=== PATIENT | male | born 1960 | race Caucasian/White ===

== ENCOUNTER → 2020-10-12 08:59 | Outpatient (REF) | payer MEDICARE, SELFPAY ==
--- NOTE | ~2020-10-12 | CT_ITS ---
EXAMINATION: CT ANGIOGRAM CHEST AND ABDOMEN CLINICAL INFORMATION: Status post aortic dissection repair. COMPARISON: Previous at [facility]. Not available. TECHNIQUE: Following intravenous administration of 85 mL of Omnipaque 350, CT angiogram of the chest aorta was obtained. Subsequently additional 50 mL of Omnipaque 350 was administered and further imaging of abdominal aorta was performed up to pubic symphysis. 3-D reconstructions were performed in AP, oblique and lateral projection. DLP: 1007 mGy-cm. FINDINGS: CHEST: CTA: There is an artificial prosthetic aortic valve. The ascending aorta is of normal caliber. There is a flap visualized from the posterior arch through the descending aorta extending into the abdomen to the level of common iliac bifurcation. There is a 3-vessel branching aortic arch. There is focal dissection extending through the right brachiocephalic artery that terminates at the carotid takeoff. The left common carotid and left subclavian arteries are widely patent. At the level of descending thoracic aorta, the false lumen appears larger and posteriorly. The descending thoracic aorta combined measures 6.6 x 5.5 cm on axial image 235/12. CT NONVASCULAR: The heart size is normal. There are coronary artery and aortic valve calcifications. No pericardial effusion seen. Central trachea and the bronchi are widely patent. No abnormal size mediastinal lymph nodes seen. The thyroid lobes are symmetrical and normal. The lungs are expanded and clear of acute pneumonic process. No pulmonary nodule, mass or consolidation. There is no pleural effusion or thickening. The axilla and the chest wall appear unremarkable. Bone windows reveal mediastinal sutures from previous intervention. ABDOMEN AND PELVIS: CTA: The false lumen is posterior and larger extending inferiorly to the bifurcation. The celiac and superior mesenteric artery branches arise from the true lumen. The left renal artery arises from the true lumen and right renal artery arises from false lumen. Inferiorly the IVAN originates from the smaller true lumen. The true lumen continues into the left common iliac artery and false larger lumen continues into the right common iliac artery. At the level of kidneys, the abdominal aorta measures 3.6 x 3.8 cm on axial image 27/5. The IVC is normal caliber. NONVASCULAR: The liver is homogeneous in density, normal size and shape. No focal lesion or intrahepatic ductal dilatation seen. Visualized spleen, pancreas and bilateral adrenal glands are unremarkable. There is hypodense gallbladder likely from vicarious contrast excretion. A hyperdense sludge is not excluded. Bilateral adrenal glands are unremarkable. Both kidneys are symmetrical, normal size and shape. There is a 4.3 cm partially exophytic cyst lower pole left kidney. There is no hydronephrosis. Partially opacified ureters are normal caliber. The urinary bladder is partially opacified and appears unremarkable. No retroperitoneal lymph nodes or mass seen. The GI tract is unremarkable. There is evidence of previous gastric sleeve surgery. The abdominal wall appears unremarkable. Imaging through the pelvis reveals prostate gland to be unremarkable. No free fluid seen. Small shotty lymph nodes are seen in the inguinal region. Bone windows reveal no lytic or sclerotic process. There is anterior wedging T12 vertebra. CT/CT angio chest IMPRESSION: There is a [place] type B aortic dissection extending beyond the left subclavian artery all the way into the abdominal aorta bifurcation and into the common iliac arteries. There is segmental dissection involving right brachiocephalic artery. At this time, there is no flap seen within the ascending aorta. However, patient did have aortic valve replacement for dissection. If patient did have ascending aortic dissection, it is hard to know. No distinct flap is seen in the ascending aorta. Extending beyond the left subclavian artery, the false lumen is larger through the descending thoracic aorta and abdominal aorta and continuing into the right common iliac artery. Celiac, superior mesenteric and inferior mesenteric artery arises from the smaller true aortic lumen. There is atherosclerotic calcification of smaller false abdominal aortic lumen in the distal abdominal aorta. The lungs are clear. No abnormal mediastinal mass or lymphadenopathy except for coronary artery calcification. Exophytic cyst lower pole left kidney. The kidneys are otherwise unremarkable. Gastric sleeve surgery of the stomach is noted. Rest of the abdomen and pelvis is unremarkable. Images were immediately discussed by phone with Dr. Chang Elder covering for Dr. Blake and was made aware of the aortic dissection at 10:45 AM while patient was on CT table.
--- NOTE | 2020-10-12 09:30 | CA_ITS ---
Transthoracic Echocardiogram Patient (Last, First, Middle): Giovani Diaz, Gender: Male Date of : 1960 Age: 60 Procedure Date: 10/12/2020 Procedure Type: Transthoracic Echocardiogram Location: OP Height: 182.88 cm Weight: 163.3 kg BSA: 2.73 m2 Heart Rate: bpm BP: 152 / 79 mmHg Canvas Cutter Machine: MYNOR Referring MD: Daniel Blake MD Vehicle Insurance Agent: Chang Elder MD Symptoms: Z98.890 S/P AORTIC DISSECTION REPAIR, Z95.2 AV REPLA Study Quality: Fair ECG Rhythm: Sinus Conclusions: - 1. Normal LV systolic function 2. Mildly dilated left atrium 3. Mechanical aortic prosthetic valve with mean gradient of 13 mm of mercury 4. Normal RV systolic pressure 5. No gross pericardial effusion Findings Procedure Information Contrast agent, definity, is being given per protocol without apparent complications. Left Ventricle Normal left ventricular size, thickness, and systolic function. The visually estimated ejection fraction is between 55-60%. There is paradoxical septal motion consistent with post-operative status. Spectral Doppler is indicative of a normal filling pattern. Right Ventricle Normal right ventricular cavity size and systolic function. Atria The left atrium is mildly dilated. There is no evidence of interatrial shunt. The right atrium is normal in size. Aortic Valve A mechanical prosthetic aortic valve is present. The prosthetic aortic valve appears to be functioning normally. The mean gradient is 13 mmHg. There is no aortic valve regurgitation. Mitral Valve Likely normal mitral valve structure and function. There is trace mitral valve regurgitation. There is no mitral valve stenosis. Pulmonic Valve The pulmonic valve was not well visualized. Tricuspid Valve The tricuspid valve was not well visualized. There is trace tricuspid valve regurgitation. The right ventricular systolic pressure is normal. The right ventricular systolic pressure is 25 mmHg. Normal right atrial pressure. There is no evidence of pulmonary hypertension. Great Vessels The pulmonary artery was not well visualized. Visualized portion of ascending aorta appears to be within normal limits Venous The inferior vena cava is normal in size and collapses greater than 50% with inspiration. Pericardium/Pleural There is no evidence of pericardial effusion. Measurements 2D Linear Measurements IVSd: 1.18 0.6-0.9/0.6-1.0 cm LVIDd: 5.33 3.9-5.3/4.2-5.9 cm LVIDd Index: 1.95 2.4-3.2/2.2-3.1 cm/m2 LVIDs: 3.63 2.0-3.6 cm LVPWd: 1.07 0.7-1.1 cm LA Diam: 4.80 2.7-3.8/3.0-4.0 cm LAIDs Index: 1.76 1.5-2.3 cm/m2 LV Mass: 295.46 67-162/88-224 g LV Mass Index: 108.23 43-95/49-115 g/m2 LVOT Diam: 2.40 3.0+(-)1.3 cm 2D Systolic Function EF 4C: 58.40 >55% EF 2C: 58.50 >55% Mitral Valve MV Pk E: 0.99 MV PK A: 0.84 MV Decel Time: 227.00 E/A: 1.20 E'Lateral: 9.68 E'Medial: 7.40 E/E' Med: 13.40 E/E' Lat: 10.20 PHT: 66.00 MVA PHT: 3.33 Decel [place]: 4.37 Aortic Valve AoV Pk Markie: 2.42 AoV Mn Markie: 1.76 AoV VTI: 0.56 AoV Pk Grad: 23.00 Aov Mn Grad: 13.00 BONI Cont.VTI: 1.74 LVOT LVOT Pk Markie: 0.86 LVOT Mn Markie: 0.61 LVOT VTI: 0.22 LVOT Pk Grad: 3.00 LVOT Mn Grad: 2.00 LVOT Diam: 2.40 LVOT Area: 4.52 Diastolic Function MV Pk E: 0.99 MV Pk A: 0.84 E/A: 1.20 E'Medial: 7.40 E/E' Med: 13.40 E' Laterial: 9.68 E/E' Lat: 10.20 Tricuspid Valve TR Pk Markie: 2.32 TR Pk Grad: 22.00 RA Press: 3.00 RVSP: 25.00 Great Vessels Aorta Ao Asc: 3.40 2.1-3.4 cm Updated in Other Vendor System with Status of Final Chang Elder MD electronically signed on 10/12/2020 5:58:22 PM with status of Final
== END ==
LOC: HO.CARD 08:59
PROVIDERS: PCP Internal Medicine; Visit Provider Internal Medicine
DX: Z95.2 Presence of prosthetic heart valve (principal); Z98.890 Other specified postprocedural states
CPT/HCPCS: 71275; 74174; 93306; Q9957; Q9967

== ENCOUNTER → 2020-10-24 08:18 | Outpatient (BNVA) | payer MEDICARE, SELFPAY | PROVIDERS: PCP Internal Medicine; Visit Provider Internal Medicine | DX: I50.32 Chronic diastolic (congestive) heart failure (principal); I48.0 Paroxysmal atrial fibrillation; Z95.1 Presence of aortocoronary bypass graft; Z95.2 Presence of prosthetic heart valve; Z98.890 Other specified postprocedural states | CPT/HCPCS: 99212 ==

== ENCOUNTER → 2020-10-25 13:56 | Outpatient (BNVA) | payer MEDICARE, SELFPAY | PROVIDERS: PCP Internal Medicine; Visit Provider Surgery Vascular Surgery | DX: I71.03 Dissection of thoracoabdominal aorta (principal) | CPT/HCPCS: 99202 ==

== ENCOUNTER → 2020-12-27 08:04 | Outpatient (BNVA) | payer MEDICARE, SELFPAY | PROVIDERS: PCP Internal Medicine; Referring Provider Internal Medicine; Visit Provider Internal Medicine | DX: I50.32 Chronic diastolic (congestive) heart failure (principal); I48.0 Paroxysmal atrial fibrillation; G47.33 Obstructive sleep apnea (adult) (pediatric); Z95.1 Presence of aortocoronary bypass graft; Z95.2 Presence of prosthetic heart valve; Z98.890 Other specified postprocedural states | CPT/HCPCS: 99212 ==

== ENCOUNTER 2021-03-28 13:39 | Outpatient (REF) | payer MEDICARE, SELFPAY ==
[2021-03-28 14:55] LABS: Blood Urea Nitrogen 16 mg/dL (9-16); Estimated Glomerular Filt Rate 52
== END 2021-03-28 13:40 | disposition home or self-care (01) ==
LOC: HO.LAB 13:39
PROVIDERS: PCP Internal Medicine; Visit Provider Surgery Vascular Surgery
DX: I71.03 Dissection of thoracoabdominal aorta (principal)
CPT/HCPCS: 36415; 82565; 84520

== ENCOUNTER 2021-04-11 08:37 | Outpatient (REF) | payer MEDICARE, SELFPAY ==
--- NOTE | ~2021-04-11 | CT_ITS ---
EXAMINATION: CT ANGIOGRAM ABDOMEN AND PELVIS CLINICAL INFORMATION: Dissection of thoracoabdominal aorta. COMPARISON: CT angiogram chest, abdomen, pelvis 10/12/2020. TECHNIQUE: Multiple axial images were obtained through the abdomen and pelvis following the administration of 80 mL of Omnipaque 350 intravenous contrast. Images were not reviewed on a dedicated 3-D workstation. However, images were evaluated on an independent dedicated 3-D workstation and 3-D images were reconstructed with concurrent radiologist supervision and subsequently interpreted. This CT examination was performed using dose optimization techniques as appropriate, variously including the following: *Automated exposure control *Adjustment of mA and/or kV according to patient size (this includes techniques or standardized protocols for targeted exams where dose is matched to indication/reason for exam; i.e. extremities or head) *Use of iterative reconstruction technique DLP: 542 mGy-cm FINDINGS: VASCULAR FINDINGS: The aorta at the thoracoabdominal junction is extremely tortuous. Diameter is largest at the diaphragmatic hiatus where this measures about 5.7, not significantly changed when compared to the prior study. A dissection is seen similar to that noted previously. The false lumen is significantly larger than the true lumen. The celiac gets supply solely from the compressed true lumen. The SMA gets supply from both the true and false lumen and the dissection extends into the SMA for about 3 cm. A single right renal artery arises from the false lumen and a single left renal artery arises from the true lumen. The IVAN arises from the true lumen. The infrarenal abdominal aorta demonstrates calcification around the true lumen. The dissection does not involve the left common iliac artery, but dissection does extend into the right iliac system although not optimally visualized because of contrast timing. I believe the dissection ends before the common femoral artery. Both femoral bifurcations are unremarkable with proximal profunda femoris and superficial femoral arteries. NONVASCULAR FINDINGS: LUNG BASES: The visualized lung bases are unremarkable. LIVER, GALLBLADDER, AND BILIARY TREE: The liver is normal in size, shape, and attenuation. No focal hepatic lesion or biliary ductal dilatation is present. The gallbladder contains layering high-density calculi but is otherwise unremarkable with no evidence of wall thickening, or obvious pericholecystic inflammatory changes. PANCREAS: Unremarkable. SPLEEN: Unremarkable. ADRENAL GLANDS: Unremarkable. KIDNEYS AND URETERS: The kidneys are normal in size, shape, and attenuation. No hydronephrosis, hydroureter, or calculi seen. Again seen is a benign simple 4.4 cm left renal cyst. No solid renal masses are present. No perinephric stranding. BLADDER: Unremarkable. GASTROINTESTINAL TRACT: The small and large bowel are unremarkable. The appendix is unremarkable. ABDOMINAL WALL: No significant hernia is appreciated. LYMPH NODES: Normal. VASCULAR: Unremarkable. PELVIC VISCERA: Unremarkable. OSSEOUS STRUCTURES: Degenerative change is noted in the spine most marked at L4-L5 with grade 1 anterolisthesis. A compression fracture of T12 is again seen and stable. CT/CT angio abdomen pelvis IMPRESSION: The abdominal aortic dissection shows no significant interval change in size and extent. There is a mix of supply to visceral organs with the celiac, left renal artery and IVAN arising from the true lumen and the right renal artery arising from the false lumen with the SMA getting supply from both. Other nonvascular incidental findings as described above.
[2021-04-11] MEDS: iohexoL 350 MG/ML 100 ML INFUS..BTL IV (10:09)
== END 2021-04-11 08:38 | disposition home or self-care (01) ==
LOC: HO.CT 08:37
PROVIDERS: PCP Internal Medicine; Visit Provider Surgery Vascular Surgery
DX: I71.03 Dissection of thoracoabdominal aorta (principal)
CPT/HCPCS: 74174; Q9967

== ENCOUNTER → 2021-04-25 10:31 | Outpatient (BNVA) | payer MEDICARE, SELFPAY | PROVIDERS: PCP Internal Medicine; Visit Provider Surgery Vascular Surgery | DX: I71.03 Dissection of thoracoabdominal aorta (principal) | CPT/HCPCS: 99212 ==

== ENCOUNTER 2021-07-03 07:46 | Outpatient (REF) | payer MEDICARE, SELFPAY ==
[2021-07-03 10:24] LABS: Anion Gap 12 (12-20); Blood Urea Nitrogen 19 mg/dL (9-16); Calcium 9.4 mg/dL (8.4-10.2); Carbon Dioxide 30 mmol/L (22-29); Chloride 105 mmol/L (96-108); Estimated Glomerular Filt Rate 51; Glucose Random 106 mg/dL (60-115); Potassium 4.1 mmol/L (3.3-5.1); Sodium 143 mmol/L (135-145)
== END 2021-07-03 07:47 | disposition home or self-care (01) ==
LOC: HO.LAB 07:46
PROVIDERS: PCP Internal Medicine; Referring Provider Internal Medicine; Visit Provider Internal Medicine
DX: I50.32 Chronic diastolic (congestive) heart failure (principal); I48.0 Paroxysmal atrial fibrillation; G47.33 Obstructive sleep apnea (adult) (pediatric); R06.02 Shortness of breath; I71.00 Dissection of unspecified site of aorta; M79.89 Other specified soft tissue disorders; Z87.891 Personal history of nicotine dependence; Z98.84 Bariatric surgery status; Z95.1 Presence of aortocoronary bypass graft; Z95.5 Presence of coronary angioplasty implant and graft; Z95.2 Presence of prosthetic heart valve; Z79.82 Long term (current) use of aspirin; Z79.01 Long term (current) use of anticoagulants; Z79.891 Long term (current) use of opiate analgesic; Z79.899 Other long term (current) drug therapy
CPT/HCPCS: 36415; 80048; 93005; 99212

== ENCOUNTER 2021-09-26 09:19 | Outpatient (REF) | payer MEDICARE, SELFPAY ==
[2021-09-26 11:13] LABS: Blood Urea Nitrogen 17 mg/dL (9-16); Estimated Glomerular Filt Rate 50
== END 2021-09-26 09:20 | disposition home or self-care (01) ==
LOC: HO.LAB 09:19
PROVIDERS: PCP Internal Medicine; Visit Provider Surgery Vascular Surgery
DX: I71.03 Dissection of thoracoabdominal aorta (principal)
CPT/HCPCS: 36415; 82565; 84520

== ENCOUNTER 2021-10-13 08:33 | Outpatient (REF) | payer MEDICARE, SELFPAY ==
--- NOTE | ~2021-10-13 | CT_ITS ---
EXAMINATION: CT ANGIOGRAM CHEST, ABDOMEN AND PELVIS WITHOUT AND WITH CONTRAST CLINICAL INFORMATION: Thoracoabdominal aortic dissection. COMPARISON: CTA abdomen and pelvis 04/11/2021, CTA chest/abdomen/pelvis 10/12/2020. TECHNIQUE: Multidetector volumetric CT imaging of the chest, abdomen, and pelvis was performed before and after the administration of 100 mL of Omnipaque 350 intravenous contrast without immediate adverse reactions. 3-D POSTPROCESSING: Multiple 3-D angiographic images were processed from the initial data set by the [facility] under concurrent physician supervision. DOSE LOWERING TECHNIQUES: This CT examination was performed using dose optimization techniques as appropriate, variously including the following: - Automated exposure control. - Adjustment of mA and/or kV according to patient size (this includes techniques or standardized protocols for targeted exams where dose is matched to indication/reason for exam; i.e. extremities or head). - Use of iterative reconstruction technique. DLP: 569 mGy-cm FINDINGS: VASCULAR: ASCENDING AORTA: Aortic valve replacement. There appears to have been open repair of the ascending thoracic aorta without evidence of aneurysm, dissection or stenosis. AORTIC ARCH: There may have been an aortic arch repair, however, without noncontrast images it is difficult to assess. Regardless, there is no evidence of aneurysm, dissection or stenosis. Chronic partial dissection flap within the brachiocephalic artery extending into the subclavian artery, unchanged in distribution and appearance. DESCENDING AORTA: Chronic type B dissection with unchanged configuration and distribution between the false and true lumens with a very small true lumen. Without 3-D rendering images, precise measurements of the aneurysmal portion of the descending thoracic aorta is difficult to reproduce, however, when attempts were made to compare it to the axial slice selected on the prior study, the aneurysm currently measures 7.0 x 5.6 cm, previously 6.6 x 5.5 cm. ABDOMINAL AORTA: Extension of the dissection flap continues into the abdomen and into the right common iliac artery. Unchanged configuration and distribution between the false and true lumens. Aneurysmal dilatation of the abdominal aorta is minimal measuring 4.0 x 3.8 cm, unchanged. CELIOMESENTERIC ARTERIES: The celiac artery, superior mesenteric artery and inferior mesenteric artery are patent and arises from the true lumen. RENAL ARTERIES: The right renal artery is patent and arises from the false lumen. The left renal artery is patent and arises from the true lumen. RIGHT ILIOFEMORAL ARTERIES: The dissection flap extends into the right common iliac artery. The internal iliac artery arises from the true lumen. The dissection flap terminates within the external iliac artery. No evidence of flow limitation. LEFT ILIOFEMORAL ARTERIES: The left common iliac artery arises from the true lumen. 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 NONVASCULAR: LUNGS: No pulmonary consolidation. No suspicious pulmonary nodules. Trachea is midline and central airways are patent. MEDIASTINUM: Extensive three-vessel coronary artery calcifications. Heart size is normal. No pericardial effusion. No mediastinal or hilar lymphadenopathy. Esophagus unremarkable. Expected post surgical changes. PLEURA: There is no pleural effusion. No pleural mass or thickening. LIVER, GALLBLADDER, AND BILIARY TREE: The liver is normal in size, shape, and attenuation. No focal hepatic lesion or biliary ductal dilatation is present. The gallbladder contains hyperdense material as seen on other imaging, more likely multiple layering calculi than vicarious excretion of contrast due to the similar appearance over multiple prior studies. No evidence of acute cholecystitis. PANCREAS: Unremarkable. SPLEEN: Unremarkable. ADRENAL GLANDS: Unremarkable. KIDNEYS AND URETERS: The kidneys are normal in size, shape, and attenuation. No hydronephrosis, hydroureter, or calculi seen. No perinephric stranding. Left renal cyst, unchanged and no imaging follow up recommended. BLADDER: Unremarkable. GASTROINTESTINAL TRACT: Status post sleeve gastrectomy. Appendix unremarkable. No evidence of bowel obstruction. ABDOMINAL WALL: No significant hernia is appreciated. LYMPH NODES: No lymphadenopathy within the abdomen or pelvis by CT criteria. PELVIC VISCERA: Unremarkable. OSSEOUS STRUCTURES: Chronic compression fracture T12. Chronic anterolisthesis L4 on L5. No acute or suspicious osseous abnormality. CT/CT angio abdomen pelvis IMPRESSION: 1. Stable appearance of the thoracoabdominal aortic dissection as detailed above. 2. Other non-vascular incidental findings as above.
[2021-10-13] MEDS: iohexoL 350 MG/ML 100 ML INFUS..BTL IV (09:38)
== END 2021-10-13 08:34 | disposition home or self-care (01) ==
LOC: HO.CT 08:33
PROVIDERS: Visit Provider Surgery Vascular Surgery
DX: I71.03 Dissection of thoracoabdominal aorta (principal)
CPT/HCPCS: 71275; 74174; Q9967

== ENCOUNTER → 2021-10-24 09:41 | Outpatient (BNVA) | payer MEDICARE, SELFPAY | PROVIDERS: PCP Internal Medicine; Visit Provider Surgery Vascular Surgery | DX: I71.03 Dissection of thoracoabdominal aorta (principal) | CPT/HCPCS: 99212 ==

== ENCOUNTER → 2021-12-26 08:07 | Outpatient (REF) | payer MEDICARE, SELFPAY ==
--- NOTE | 2021-12-26 08:10 | CA_ITS ---
Transthoracic Echocardiogram Patient (Last, First, Middle): Giovani Diaz, Gender: Male Date of : 1960 Age: 61 Procedure Date: 12/26/2021 Procedure Type: Transthoracic Echocardiogram Location: OP Height: 182.88 cm Weight: 158.76 kg BSA: 2.70 m2 Heart Rate: bpm BP: 135 / 70 mmHg Sales Enablement Lead: VH/TO Referring MD: Daniel Blake MD [employer] Operator: Chang Elder MD Symptoms: Z95.2 - Presence of prosthetic heart valve Study Quality: Technically Difficult ECG Rhythm: Sinus Conclusions: - 1. Normal LV systolic function with pseudonormal filling pattern 2. Mildly dilated left atrium 3. Dilated right ventricle with preserved systolic function 4. Normally function mechanical aortic valve with mean gradient of 13 mmHg 5. Normal RV systolic pressure 6. No pericardial effusion Findings Left Ventricle Normal left ventricular size, thickness, and systolic function. The visually estimated ejection fraction is between 55-60%. Regional wall motion abnormalities can not be excluded due to suboptimal endocardial definition. There is paradoxical septal motion consistent with post-operative status. Spectral Doppler is indicative of a pseudonormal filling pattern. Right Ventricle Moderately increased right ventricular cavity size. There is normal right ventricular systolic function. Atria The left atrium is mildly dilated. There is no evidence of interatrial shunt. The right atrium is likely dilated. Aortic Valve A mechanical prosthetic aortic valve is present. The prosthetic aortic valve appears to be functioning normally. The mean gradient is 13 mmHg. Mitral Valve Likely normal mitral valve structure and function. There is no mitral valve regurgitation. There is no mitral valve stenosis. Pulmonic Valve The pulmonic valve was not well visualized. Tricuspid Valve Likely normal tricuspid valve structure and function. There is trace tricuspid valve regurgitation. The right ventricular systolic pressure is normal. The right ventricular systolic pressure is 26 mmHg. Normal right atrial pressure. There is no evidence of pulmonary hypertension. Great Vessels All visible segments of the aorta are normal in size. The pulmonary artery was not well visualized. Venous The inferior vena cava is normal in size and collapses greater than 50% with inspiration. Pericardium/Pleural There is no evidence of pericardial effusion. Prior Study Comparison No change compared to prior study dated: 10/12/2020. Measurements 2D Linear Measurements IVSd: 1.07 0.6-0.9/0.6-1.0 cm LVIDd: 5.65 3.9-5.3/4.2-5.9 cm LVIDd Index: 2.09 2.4-3.2/2.2-3.1 cm/m2 LVIDs: 3.63 2.0-3.6 cm LVPWd: 1.16 0.7-1.1 cm LA Diam: 4.10 2.7-3.8/3.0-4.0 cm LAIDs Index: 1.52 1.5-2.3 cm/m2 LV Mass: 321.30 67-162/88-224 g LV Mass Index: 119.00 43-95/49-115 g/m2 LVOT Diam: 2.30 3.0+(-)1.3 cm Mitral Valve MV Pk E: 0.99 MV PK A: 0.75 MV Decel Time: 249.00 E/A: 1.30 E'Lateral: 9.57 E'Medial: 5.00 E/E' Med: 19.80 E/E' Lat: 10.30 PHT: 73.00 MVA PHT: 3.01 Decel [place]: 3.98 Aortic Valve AoV Pk Markie: 2.44 AoV Mn Markie: 1.73 AoV VTI: 0.61 AoV Pk Grad: 24.00 Aov Mn Grad: 13.00 BONI Cont.VTI: 1.83 LVOT LVOT Pk Markie: 1.06 LVOT Mn Markie: 0.69 LVOT VTI: 0.27 LVOT Pk Grad: 4.00 LVOT Mn Grad: 3.00 LVOT Diam: 2.30 LVOT Area: 4.15 Diastolic Function MV Pk E: 0.99 MV Pk A: 0.75 E/A: 1.30 E'Medial: 5.00 E/E' Med: 19.80 E' Laterial: 9.57 E/E' Lat: 10.30 Right Ventricle TAPSE (mm): 19.00 TVS' Markie: 10.00 Tricuspid Valve TR Pk Markie: 2.38 TR Pk Grad: 23.00 RA Press: 3.00 RVSP: 26.00 Pulmonary Valve AR Pk Markie: 1.17 Updated in Other Vendor System with Status of Final Chang Elder MD electronically signed on 12/27/2021 12:51:01 PM with status of Final
== END ==
LOC: HO.CARD 08:07
PROVIDERS: PCP Internal Medicine; Visit Provider Internal Medicine
DX: Z95.2 Presence of prosthetic heart valve (principal)
CPT/HCPCS: 93306

== ENCOUNTER → 2022-01-08 07:38 | Outpatient (BNVA) | payer MEDICARE, SELFPAY | PROVIDERS: PCP Internal Medicine; Referring Provider Internal Medicine; Visit Provider Internal Medicine | DX: I50.32 Chronic diastolic (congestive) heart failure (principal); I48.0 Paroxysmal atrial fibrillation; G47.33 Obstructive sleep apnea (adult) (pediatric); Z95.1 Presence of aortocoronary bypass graft; Z98.890 Other specified postprocedural states; Z95.2 Presence of prosthetic heart valve | CPT/HCPCS: 99212 ==

== ENCOUNTER 2022-06-04 13:23 | Outpatient (REF) | payer MEDICARE, SELFPAY ==
[2022-06-04 14:42] LABS: Blood Urea Nitrogen 12 mg/dL (9-16); Estimated Glomerular Filt Rate 54
== END 2022-06-04 13:24 | disposition home or self-care (01) ==
LOC: HO.LAB 13:23
PROVIDERS: PCP Internal Medicine; Visit Provider Surgery Vascular Surgery
DX: I71.40 Abdominal aortic aneurysm, without rupture, unspecified (principal)
CPT/HCPCS: 36415; 82565; 84520

== ENCOUNTER → 2022-07-16 09:47 | Outpatient (BNVA) | payer MEDICARE, SELFPAY | PROVIDERS: PCP Internal Medicine; Referring Provider Internal Medicine; Visit Provider Internal Medicine | DX: I50.32 Chronic diastolic (congestive) heart failure (principal); I48.0 Paroxysmal atrial fibrillation; G47.33 Obstructive sleep apnea (adult) (pediatric); Z95.2 Presence of prosthetic heart valve; Z95.1 Presence of aortocoronary bypass graft; Z98.890 Other specified postprocedural states | CPT/HCPCS: 93005; 99212 ==

== ENCOUNTER 2022-12-21 07:40 | Outpatient (REF) | payer MEDICARE, SELFPAY ==
[2022-12-21 08:30] LABS: Estimated Glomerular Filt Rate 56
== END 2022-12-21 07:41 | disposition home or self-care (01) ==
LOC: HO.LAB 07:40
PROVIDERS: Absent Provider Internal Medicine; PCP Internal Medicine; Visit Provider Nurse Practitioner
DX: I71.03 Dissection of thoracoabdominal aorta (principal)
CPT/HCPCS: 36415; 82565

== ENCOUNTER → 2022-12-31 09:10 | Outpatient (REF) | payer MEDICARE, SELFPAY ==
--- NOTE | 2022-12-31 09:13 | CA_ITS ---
Transthoracic Echocardiogram Patient (Last, First, Middle): Giovani Diaz, Gender: Male Date of : 1960 Age: 62 Procedure Date: 12/31/2022 Procedure Type: Transthoracic Echocardiogram Location: OP Height: 182.88 cm Weight: 142.88 kg BSA: 2.58 m2 Heart Rate: bpm BP: 105 / 65 mmHg Varnish Finisher: ARIA Referring MD: Daniel Blake MD Symptoms: Z95.2 - Presence of prosthetic heart valve Study Quality: Fair with contrast ECG Rhythm: Sinus Conclusions: - The left ventricular systolic function is low normal. The visually estimated ejection fraction is between 50-55%. - Moderately increased right ventricular cavity size. - Moderate biatrial enlargement. - A mechanical prosthetic aortic valve is present. The prosthetic aortic valve appears to be functioning normally. Findings Procedure Information Contrast agent, definity, is being given per protocol without apparent complications. Left Ventricle Normal left ventricular cavity size. There is mildly increased left ventricular wall thickness. The left ventricular systolic function is low normal. The visually estimated ejection fraction is between 50-55%. There is no evidence of regional wall motion abnormalities. Spectral Doppler is indicative of a pseudonormal filling pattern. Right Ventricle Moderately increased right ventricular cavity size. There is mildly decreased right ventricular systolic function. Atria Moderate biatrial enlargement. Aortic Valve A mechanical prosthetic aortic valve is present. The prosthetic aortic valve appears to be functioning normally. The mean gradient is 6 mmHg. There is no aortic valve regurgitation. Mitral Valve The mitral valve appears normal. There is no mitral valve regurgitation. There is no mitral valve stenosis. Pulmonic Valve There is mild pulmonic valve regurgitation. Tricuspid Valve There is mild tricuspid valve regurgitation. There is no evidence of pulmonary hypertension. Great Vessels The asc aorta is normal in size. Venous The inferior vena cava is normal in size and collapses greater than 50% with inspiration. Pericardium/Pleural There is no evidence of pericardial effusion. Prior Study Comparison No significant change compared to prior study dated: 12/26/2021. Measurements 2D Linear Measurements IVSd: 1.14 0.6-0.9/0.6-1.0 cm LVIDd: 5.02 3.9-5.3/4.2-5.9 cm LVIDd Index: 1.95 2.4-3.2/2.2-3.1 cm/m2 LVIDs: 3.93 2.0-3.6 cm LVPWd: 1.12 0.7-1.1 cm LA Diam: 4.30 2.7-3.8/3.0-4.0 cm LAIDs Index: 1.67 1.5-2.3 cm/m2 LV Mass: 269.70 67-162/88-224 g LV Mass Index: 104.53 43-95/49-115 g/m2 LVOT Diam: 2.30 3.0+(-)1.3 cm 2D Systolic Function EF 4C: 51.40 >55% EF 2C: 59.70 >55% EF BiP: 56.50 >55% Mitral Valve MV Pk E: 0.82 MV PK A: 0.75 MV Decel Time: 294.00 E/A: 1.10 E'Lateral: 8.59 E'Medial: 5.77 E/E' Med: 14.30 E/E' Lat: 9.60 PHT: 86.00 MVA PHT: 2.56 Decel [place]: 2.80 Aortic Valve AoV Pk Markie: 1.79 AoV Mn Markie: 1.17 AoV VTI: 0.42 AoV Pk Grad: 13.00 Aov Mn Grad: 6.00 BONI Cont.VTI: 2.12 LVOT LVOT Pk Markie: 0.89 LVOT Mn Markie: 0.61 LVOT VTI: 0.21 LVOT Pk Grad: 3.00 LVOT Mn Grad: 2.00 LVOT Diam: 2.30 LVOT Area: 4.15 Diastolic Function MV Pk E: 0.82 MV Pk A: 0.75 E/A: 1.10 E'Medial: 5.77 E/E' Med: 14.30 E' Laterial: 8.59 E/E' Lat: 9.60 Right Ventricle TAPSE (mm): 17.50 TVS' Markie: 8.92 Tricuspid Valve TR Pk Markie: 2.14 TR Pk Grad: 18.00 RA Press: 3.00 RVSP: 21.00 Great Vessels Aorta Ao Asc: 3.30 2.1-3.4 cm Updated in Other Vendor System with Status of Final Daniel Blake MD electronically signed on 12/31/2022 12:31:35 PM with status of Final
== END ==
LOC: HO.CARD 09:10
PROVIDERS: PCP Internal Medicine; Visit Provider Internal Medicine
DX: Z95.2 Presence of prosthetic heart valve (principal)
CPT/HCPCS: 93306; Q9957

== ENCOUNTER 2023-01-22 09:16 | Outpatient (REF) | payer MEDICARE, SELFPAY ==
[2023-01-22 11:25] LABS: B Type Natriuretic Peptide 189 pg/mL (<100)
[2023-01-22 11:28] LABS: Anion Gap 13 (12-20); Blood Urea Nitrogen 13 mg/dL (9-16); Calcium 9.5 mg/dL (8.4-10.2); Carbon Dioxide 28 mmol/L (22-29); Chloride 105 mmol/L (96-108); Estimated Glomerular Filt Rate > 60; Glucose Random 112 mg/dL (60-115); Potassium 4.9 mmol/L (3.3-5.1); Sodium 141 mmol/L (135-145)
== END 2023-01-22 09:17 | disposition home or self-care (01) ==
LOC: HO.LAB 09:16
PROVIDERS: PCP Internal Medicine; Referring Provider Internal Medicine; Visit Provider Internal Medicine
DX: I48.0 Paroxysmal atrial fibrillation (principal); I50.32 Chronic diastolic (congestive) heart failure; I50.22 Chronic systolic (congestive) heart failure; Z95.1 Presence of aortocoronary bypass graft; Z95.2 Presence of prosthetic heart valve; Z98.890 Other specified postprocedural states; Z79.899 Other long term (current) drug therapy; Z79.01 Long term (current) use of anticoagulants
CPT/HCPCS: 36415; 80048; 83880; 99212

== ENCOUNTER 2023-08-22 08:11 | Outpatient (AMB) | payer MEDICARE, SELFPAY ==
[2023-08-22 09:12] VITALS: BP 120/60; PULSE 59; BMI 38.3
--- NOTE | 2023-08-22 09:12 | MHC.OFFVIS ---
Intake Vital Signs 08/22/23 09:12 Height 6 ft Weight 282 lb 3.067 oz BMI 38.3 BP 120/60 Blood Pressure Location Lt brachial Position Sitting Pulse 59 Intake Visit Reasons: f/up Intake Note: f/up pt its feeling fine. 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 Accompanied by: Self / Same As Patient Allergies No Known Allergies Allergy (Verified 01/22/23 09:56) Medication List - Last Reconciled 08/22/23 by Daniel Blake MD amlodipine 10 mg PO DAILY aspirin (Adult Low Dose Aspirin) 81 mg PO DAILY atorvastatin 40 mg PO DAILY carvedilol 12.5 mg PO BID cholestyramine-aspartame 4 gram (Prevalite) PO DAILY cholestyramine-aspartame 4 gram (Cholestyramine Light) 1 ea PO DAILY furosemide 80 mg PO DAILY losartan 50 mg PO DAILY oxycodone 10 mg PO DAILY PRN potassium chloride ER 10 mEq PO DAILY trazodone 150 - 300 mg PO BEDTIME PRN trazodone 300 mg PO DAILY warfarin 5 mg PO DAILY warfarin mg PO warfarin 2 mg PO DAILY zolpidem 10 mg PO BEDTIME PRN HPI HPI Comments History of Present Illness Details Giovani returns for follow-up regarding aortic valve replacement and aortic dissection. To recall, he used to live in [place] and then relocated to [place] and then moved here for family reasons. While he lived in [place], had acute chest pain in 2015. This led to a diagnosis of aortic dissection. Went to [facility] where he underwent repair of the same. Prior to this, he was morbidly obese and weighed in excess of 450 lb. He had also underwent gastric bypass surgery in 2014 and lost about 150 lb in weight. Extent of coronary disease not clear, but per reports he also underwent saphenous vein graft to RCA. Overall, he is doing okay. No clear-cut cardiac symptoms. Still follows up at [facility] for the thoracic aortic aneurysm. [facility] Medical History Chronic diastolic (congestive) heart failure DOUG (obstructive sleep apnea) PAF (paroxysmal atrial fibrillation) Surgical History Status post coronary artery bypass graft Status post mechanical aortic valve replacement History of gastric bypass (~11/2014) History of hernia repair (~11/2015) Status post aortic dissection repair (~05/2016) Family History Father Cancer Mother No problems noted. Social History Patient Tobacco Use Status: Former Tobacco user Quit Date: 30 years ago Review of Systems Const All systems reviewed & are unremarkable except as noted in HPI and below Reports as per HPI and Reports no additional complaints Eyes Reports as per HPI and Denies no additional complaints ENT Denies no additional complaints and Reports as per HPI Card Reports as per HPI, Reports no additional complaints, Denies acrocyanosis, Denies chest pain, Denies leg edema, Denies lightheadedness, Denies palpitations and Denies dyspnea Resp Reports as per HPI, Denies no additional complaints and Denies dyspnea GI Reports as per HPI and Denies no additional complaints Reports no additional complaints and Reports as per HPI Musc Reports no additional complaints and Reports as per HPI Skin/Breast Reports system reviewed and no additional complaints, except as documented Neuro Reports no additional complaints and Reports as per HPI Psych Reports no additional complaints and Reports as per HPI Endo Reports no additional complaints, Reports as per HPI and Denies palpitations Silvestre/Lymph Reports no additional complaints and Reports as per HPI Aller/Immun Reports no additional complaints and Reports as per HPI Physical Exam Vital Signs: Last Vital Signs Pulse 59 08/22/23 09:12 BP 120/60 08/22/23 09:12 BMI result Body Mass Index 38.3 Const General: cooperative, comfortable and no acute distress Orientation/consciousness: patient oriented x3 HEENT Other: Unremarkable Neck Neck: Yes normal visual inspection Chest Chest palpation & inspection: normal inspection of the chest Resp Auscultation: clear to auscultation bilaterally, no crackles and no wheezes Cardio Jugular venous distension: no JVD Palpation: normal PMI Heart sounds: S1 normal heart sound present, no gallops, Murmur heart sound present (1/6 REGGIE +), no rubs and Other heart sounds present (Normal prosthetic heart sounds.) GI Palpation (GI): Soft to palpation Back/Spine/Pelvis Other: unremarkable Skin General skin exam: no rashes or lesions noted Neuro General: patient oriented x3 Extrem General: Yes pedal edema (1+) Psych Mental Status: mental status grossly normal Office Procedures EKG Details: EKG with sinus bradycardia at 59/Min; [place] prolongation to 252 milliseconds; [place]. [id number], Complete Assessment & Plan Assessment & Plan (1) Chronic diastolic (congestive) heart failure: Code(s): I50.32 - Chronic diastolic (congestive) heart failure Plan: Stable on diuretics. Advised him to send us any new labs. (2) Status post mechanical aortic valve replacement: Code(s): Z95.2 - Presence of prosthetic heart valve Plan: Stable on echocardiogram. Remains on aspirin/Coumadin. Infective endocarditis prophylaxis per protocol. (3) PAF (paroxysmal atrial fibrillation): Code(s): I48.0 - Paroxysmal atrial fibrillation Plan: Per history, cardioversions in the past. No recent issues. (4) Status post coronary artery bypass graft: Code(s): Z95.1 - Presence of aortocoronary bypass graft Plan: History of SVG to RCA. No angina. Seems stable in this regard. Continue statins. Lipids can be followed up through his own PCP. (5) Status post aortic dissection repair: Onset Date: ~05/2016 Code(s): Z98.890 - Other specified postprocedural states Plan: He is now following with vascular surgery at [facility]. (6) DOUG (obstructive sleep apnea): Code(s): G47.33 - Obstructive sleep apnea (adult) (pediatric) Plan: CPAP. Coding Level of Care Code Est Pt Level 4 (31833) Diagnoses Chronic diastolic (congestive) heart failure I50.32 Status post mechanical aortic valve replacement Z95.2 PAF (paroxysmal atrial fibrillation) I48.0 Status post coronary artery bypass graft Z95.1 Status post aortic dissection repair Z98.890 DOUG (obstructive sleep apnea) G47.33 CPT Codes EKG - CPT: 46407-[id number], Complete ([id number])
== END 2023-08-22 09:37 | disposition home or self-care (01) ==
PROVIDERS: PCP Internal Medicine; Visit Provider Internal Medicine
DX: I50.32 Chronic diastolic (congestive) heart failure (principal); Z95.2 Presence of prosthetic heart valve; I48.0 Paroxysmal atrial fibrillation; Z95.1 Presence of aortocoronary bypass graft; Z98.890 Other specified postprocedural states; G47.33 Obstructive sleep apnea (adult) (pediatric)
CPT/HCPCS: 93010; 99214

== ENCOUNTER → 2023-08-22 08:11 | Outpatient (BNVA) | payer MEDICARE, SELFPAY | PROVIDERS: PCP Internal Medicine; Visit Provider Internal Medicine | DX: I50.32 Chronic diastolic (congestive) heart failure (principal); I48.0 Paroxysmal atrial fibrillation; G47.33 Obstructive sleep apnea (adult) (pediatric); Z95.2 Presence of prosthetic heart valve; Z95.1 Presence of aortocoronary bypass graft; Z98.890 Other specified postprocedural states | CPT/HCPCS: 93005; 99212 ==

== ENCOUNTER 2024-02-12 11:39 | Outpatient (AMB) | payer MEDICARE, SELFPAY ==
--- NOTE | 2024-02-12 12:29 | MHC.OFFVIS ---
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 Accompanied by: Self / Same As Patient Allergies No Known Allergies Allergy (Verified 01/22/23 09:56) Medication List - Last Reconciled 02/12/24 by Daniel Blake MD amlodipine 10 mg PO DAILY aspirin (Adult Low Dose Aspirin) 81 mg PO DAILY atorvastatin 40 mg PO DAILY carvedilol 12.5 mg PO BID cholestyramine-aspartame 4 gram (Prevalite) PO DAILY cholestyramine-aspartame 4 gram (Cholestyramine Light) 1 ea PO DAILY furosemide 80 mg PO DAILY losartan 50 mg PO DAILY oxycodone 10 mg PO DAILY PRN potassium chloride ER 10 mEq PO DAILY trazodone 150 - 300 mg PO BEDTIME PRN trazodone 300 mg PO DAILY warfarin 5 mg PO DAILY warfarin mg PO warfarin 2 mg PO DAILY zolpidem 10 mg PO BEDTIME PRN HPI Comments Details: Giovani returns for follow-up regarding aortic valve replacement and aortic dissection. To recall, he used to live in [place] and then relocated to [place] and then moved here for family reasons. While he lived in [place], had acute chest pain in 2015. This led to a diagnosis of aortic dissection. Went to [facility] where he underwent repair of the same. Prior to this, he was morbidly obese and weighed in excess of 450 lb. He had also underwent gastric bypass surgery in 2014 and lost about 150 lb in weight. Extent of coronary disease not clear, but per reports he also underwent saphenous vein graft to RCA. Since last seen, no new specific complaints. He does feel like he is bruising all over his body but otherwise nothing specific from cardiac. He goes to [facility] for thoracic aneurysm and apparently, they are just monitoring him. [facility] Medical History Chronic diastolic (congestive) heart failure DOUG (obstructive sleep apnea) PAF (paroxysmal atrial fibrillation) Surgical History Status post coronary artery bypass graft Status post mechanical aortic valve replacement History of gastric bypass (~11/2014) History of hernia repair (~11/2015) Status post aortic dissection repair (~05/2016) Family History Father Cancer Mother No problems noted. Social History (Updated 02/12/24 @ 12:34 by Dee Dee Vazquez CMA) Alcohol intake: current Comment: social Patient Tobacco Use Status: Former Tobacco user Review of Systems Const Denies chills, Denies fatigue, Denies fever(s), Denies weight gain and Denies weight loss ENT Denies dizziness Card Denies chest pain, Denies leg edema, Denies lightheadedness, Denies palpitations, Reports dyspnea on exertion, Denies orthopnea and Denies other Resp Denies cough and Reports dyspnea on exertion GI Denies hematochezia and Denies change in stool character Musc Denies abnormal gait, Denies muscle weakness, Denies numbness, Denies radiating pain into limb and Denies tingling Neuro Denies abnormal gait, Denies dizziness, Denies numbness and Denies tingling Endo Denies fatigue and Denies palpitations Physical Exam Vital Signs: Last Vital Signs Pulse 62 02/12/24 12:30 BP 108/58 L 02/12/24 12:30 BMI result Body Mass Index 42.8 Const General: cooperative, comfortable and no acute distress Orientation/consciousness: patient oriented x3 HEENT Other: Unremarkable Neck Neck: Yes normal visual inspection Chest Chest palpation & inspection: normal inspection of the chest Resp Auscultation: clear to auscultation bilaterally, no crackles and no wheezes Cardio Jugular venous distension: no JVD Palpation: normal PMI Heart sounds: S1 normal heart sound present, no gallops, Murmur heart sound present (1/6 REGGIE +), no rubs and Other heart sounds present (Normal prosthetic heart sounds.) GI Palpation (GI): Soft to palpation Back/Spine/Pelvis Other: unremarkable Skin General skin exam: no rashes or lesions noted Neuro General: patient oriented x3 Extrem General: Yes pedal edema (1+) Psych Mental Status: mental status grossly normal Assessment & Plan Assessment & Plan (1) Chronic diastolic (congestive) heart failure: Code(s): I50.32 - Chronic diastolic (congestive) heart failure Category: Medical Plan: No recent issues. On diuretics. Will request labs from his PCP. (2) Status post mechanical aortic valve replacement: Code(s): Z95.2 - Presence of prosthetic heart valve Category: Surgical Plan: Stable on echocardiogram. He is on aspirin/Coumadin. As he is complaining of lot of bruising everywhere we can stop the aspirin. With regard to Coumadin, keep the INR around 2.5-3. Need not go above that, to avoid excessive bruising. Infective endocarditis prophylaxis per protocol. We discussed about these changes today. (3) PAF (paroxysmal atrial fibrillation): Code(s): I48.0 - Paroxysmal atrial fibrillation Category: Medical Plan: Per history, cardioversions in the past. He has not had any episodes in recent years. Remains on beta-blockers and already on anticoagulation for the valve. (4) Status post coronary artery bypass graft: Code(s): Z95.1 - Presence of aortocoronary bypass graft Category: Surgical Plan: History of SVG to RCA. No angina. Seems stable in this regard. Remains on statins. Will request labs from PCP. (5) Status post aortic dissection repair: Onset Date: ~05/2016 Code(s): Z98.890 - Other specified postprocedural states Category: Surgical Plan: He is now following with vascular surgery at [facility]. Per patient, he is only being monitored on CTs, but no interventions yet. (6) DOUG (obstructive sleep apnea): Code(s): G47.33 - Obstructive sleep apnea (adult) (pediatric) Category: Medical Plan: CPAP. Coding Level of Care Code Est Pt Level 4 (33481) Diagnoses Chronic diastolic (congestive) heart failure I50.32 Status post mechanical aortic valve replacement Z95.2 PAF (paroxysmal atrial fibrillation) I48.0 Status post coronary artery bypass graft Z95.1 Status post aortic dissection repair Z98.890 DOUG (obstructive sleep apnea) G47.33
[2024-02-12 12:30] VITALS: BP 108/58; PULSE 62; BMI 42.8
== END 2024-02-12 12:58 | disposition home or self-care (01) ==
PROVIDERS: PCP Internal Medicine; Visit Provider Internal Medicine
DX: I50.32 Chronic diastolic (congestive) heart failure (principal); Z95.2 Presence of prosthetic heart valve; I48.0 Paroxysmal atrial fibrillation; Z95.1 Presence of aortocoronary bypass graft; Z98.890 Other specified postprocedural states; G47.33 Obstructive sleep apnea (adult) (pediatric)
CPT/HCPCS: 99214

== ENCOUNTER → 2024-02-12 11:39 | Outpatient (BNVA) | payer MEDICARE, SELFPAY | PROVIDERS: PCP Internal Medicine; Visit Provider Internal Medicine | DX: I50.32 Chronic diastolic (congestive) heart failure (principal); I48.0 Paroxysmal atrial fibrillation; G47.33 Obstructive sleep apnea (adult) (pediatric); Z79.01 Long term (current) use of anticoagulants; Z79.899 Other long term (current) drug therapy; Z95.1 Presence of aortocoronary bypass graft; Z95.2 Presence of prosthetic heart valve | CPT/HCPCS: 99212 ==

== ENCOUNTER 2024-08-12 12:07 | Outpatient (AMB) | payer MEDICARE, SELFPAY ==
[2024-08-12 12:45] VITALS: BP 120/62; PULSE 70; BMI 44.5
--- NOTE | 2024-08-12 12:45 | MHC.OFFVIS ---
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 Accompanied by: Self / Same As Patient Allergies No Known Allergies Allergy (Verified 01/22/23 09:56) Medication List - Last Reconciled 08/12/24 by Daniel Blake MD amlodipine 10 mg PO DAILY atorvastatin 80 mg PO DAILY azithromycin 250 mg PO DAILY carvedilol 12.5 mg PO BID cholestyramine-aspartame 4 gram (Prevalite) PO DAILY cholestyramine-aspartame 4 gram (Cholestyramine Light) 1 ea PO DAILY furosemide 80 mg PO DAILY losartan 50 mg PO DAILY oxycodone 10 mg PO DAILY PRN potassium chloride ER 10 mEq PO DAILY trazodone 150 - 300 mg PO BEDTIME PRN trazodone 300 mg PO DAILY warfarin 5 mg PO DAILY warfarin mg PO warfarin 2 mg PO DAILY zolpidem 10 mg PO BEDTIME PRN HPI Comments Details: Giovani returns for follow-up regarding aortic valve replacement and aortic dissection. To recall, he used to live in [place] and then relocated to [place] and then moved here for family reasons. While he lived in [place], had acute chest pain in 2016. This led to a diagnosis of aortic dissection. Went to [facility] where he underwent repair of the same. Prior to this, he was morbidly obese and weighed in excess of 450 lb. He had also underwent gastric bypass surgery in 2014 and lost about 150 lb in weight. Extent of coronary disease not clear, but per reports he also underwent saphenous vein graft to RCA. Overall, he states he feels good. No cardiac symptoms. Planning to him back to [place] related to this year. He also goes to [facility] for thoracic aneurysm and apparently, they are just monitoring him. [facility] Medical History Chronic diastolic (congestive) heart failure DOUG (obstructive sleep apnea) PAF (paroxysmal atrial fibrillation) Surgical History Status post coronary artery bypass graft Status post mechanical aortic valve replacement History of gastric bypass (~11/2014) History of hernia repair (~11/2015) Status post aortic dissection repair (~05/2016) Family History Father Cancer Mother No problems noted. Social History Alcohol intake: current Comment: social Patient Tobacco Use Status: Former Tobacco user Review of Systems Const Denies chills, Denies fatigue, Denies fever(s), Denies frequent falls, Denies weakness, Denies weight gain and Denies weight loss ENT Denies dizziness Card Denies chest pain, Denies leg edema, Denies lightheadedness, Denies palpitations, Denies dyspnea and Denies dyspnea on exertion Resp Denies cough, Denies dyspnea and Denies dyspnea on exertion GI Denies hematochezia Musc Denies abnormal gait, Denies muscle weakness, Denies numbness, Denies radiating pain into limb and Denies tingling Neuro Denies abnormal gait, Denies dizziness, Denies frequent falls, Denies numbness, Denies tingling and Denies weakness Endo Denies fatigue and Denies palpitations Physical Exam Vital Signs: Last Vital Signs Pulse 70 08/12/24 12:45 BP 120/62 08/12/24 12:45 BMI result Body Mass Index 44.5 Const General: cooperative, comfortable and no acute distress Orientation/consciousness: patient oriented x3 HEENT Other: Unremarkable Neck Neck: Yes normal visual inspection Chest Chest palpation & inspection: normal inspection of the chest Resp Auscultation: clear to auscultation bilaterally, no crackles and no wheezes Cardio Jugular venous distension: no JVD Palpation: normal PMI Heart sounds: S1 normal heart sound present, no gallops, Murmur heart sound present (1/6 REGGIE +), no rubs and Other heart sounds present (Normal prosthetic heart sounds.) GI Palpation (GI): Soft to palpation Back/Spine/Pelvis Other: unremarkable Skin General skin exam: no rashes or lesions noted Neuro General: patient oriented x3 Extrem General: Yes pedal edema (1+) Psych Mental Status: mental status grossly normal Office Procedures EKG Details: EKG with underlying sinus rhythm at 70/Min; nonspecific intraventricular conduction delay; [place] 202 milliseconds; [place]. [id number], Complete Assessment & Plan Assessment & Plan (1) Chronic diastolic (congestive) heart failure: Code(s): I50.32 - Chronic diastolic (congestive) heart failure Category: Medical Plan: No recent issues. On diuretics. We do not have any recent labs. Need to contact PCP. (2) Status post mechanical aortic valve replacement: Code(s): Z95.2 - Presence of prosthetic heart valve Category: Surgical Plan: Stable on echocardiogram. Continue anticoagulation. Off aspirin because of excessive bruising. Infective endocarditis prophylaxis per protocol. (3) PAF (paroxysmal atrial fibrillation): Code(s): I48.0 - Paroxysmal atrial fibrillation Category: Medical Plan: Per history, cardioversions in the past. He has not had any episodes in recent years. Remains on beta-blockers and already on anticoagulation for the valve. (4) Status post coronary artery bypass graft: Code(s): Z95.1 - Presence of aortocoronary bypass graft Category: Surgical Plan: History of SVG to RCA. No angina. Seems stable in this regard. Remains on statins. (5) Status post aortic dissection repair: Onset Date: ~05/2016 Code(s): Z98.890 - Other specified postprocedural states Category: Surgical Plan: Followed up by vascular surgery to [facility]. Per patient, being monitored but no interventions. (6) DOUG (obstructive sleep apnea): Code(s): G47.33 - Obstructive sleep apnea (adult) (pediatric) Category: Medical Plan: CPAP. Orders: Orders CA echo transthoracic complete 4 Months Z95.2 - Presence of prosthetic heart valve Coding Level of Care Code Est Pt Level 4 (86890) Diagnoses Chronic diastolic (congestive) heart failure I50.32 Status post mechanical aortic valve replacement Z95.2 PAF (paroxysmal atrial fibrillation) I48.0 Status post coronary artery bypass graft Z95.1 Status post aortic dissection repair Z98.890 DOUG (obstructive sleep apnea) G47.33 CPT Codes EKG - CPT: 02577-[id number], Complete ([id number])
== END 2024-08-12 13:08 | disposition home or self-care (01) ==
PROVIDERS: PCP Internal Medicine; Visit Provider Internal Medicine
DX: I50.32 Chronic diastolic (congestive) heart failure (principal); Z95.2 Presence of prosthetic heart valve; I48.0 Paroxysmal atrial fibrillation; Z95.1 Presence of aortocoronary bypass graft; Z98.890 Other specified postprocedural states; G47.33 Obstructive sleep apnea (adult) (pediatric)
CPT/HCPCS: 93010; 99214

== ENCOUNTER → 2024-08-12 12:07 | Outpatient (BNVA) | payer MEDICARE, SELFPAY | PROVIDERS: PCP Internal Medicine; Visit Provider Internal Medicine | DX: I50.32 Chronic diastolic (congestive) heart failure (principal); I48.0 Paroxysmal atrial fibrillation; G47.33 Obstructive sleep apnea (adult) (pediatric); Z95.2 Presence of prosthetic heart valve; Z95.1 Presence of aortocoronary bypass graft; Z98.890 Other specified postprocedural states | CPT/HCPCS: 93005; 99212 ==

== ENCOUNTER → 2024-12-02 09:06 | Outpatient (REF) | payer MEDICARE, SELFPAY ==
--- NOTE | 2024-12-02 09:13 | CA_ITS ---
Transthoracic Echocardiogram Patient (Last, First, Middle): Giovani Diaz, Gender: Male Date of : 1960 Age: 64 Procedure Date: 12/02/2024 Procedure Type: Transthoracic Echocardiogram Location: OP Height: 182.88 cm Weight: 149.69 kg BSA: 2.64 m2 Heart Rate: bpm BP: 132 / 80 mmHg Timber Mill Worker: Referring MD: Daniel Blake MD Symptoms: Z95.2 - Presence of prosthetic heart valve Study Quality: Fair ECG Rhythm: Sinus with extra beats Conclusions: - The left ventricular systolic function is low normal. The visually estimated ejection fraction is between 50-55%. - A mechanical prosthetic aortic valve is present. The prosthetic aortic valve appears to be functioning normally. Findings Left Ventricle Normal left ventricular cavity size. There is moderately increased left ventricular wall thickness. The left ventricular systolic function is low normal. The visually estimated ejection fraction is between 50-55%. Diastolic function is normal for age. Right Ventricle Moderately increased right ventricular cavity size. There is low normal right ventricular systolic function. Atria The left atrium is moderately dilated. The right atrium is mildly dilated. Aortic Valve A mechanical prosthetic aortic valve is present. The prosthetic aortic valve appears to be functioning normally. There is no aortic valve regurgitation. Mitral Valve The mitral valve appears normal. There is no mitral valve regurgitation. There is no mitral valve stenosis. Pulmonic Valve There is trace pulmonic valve regurgitation. Tricuspid Valve There is trace tricuspid valve regurgitation. There is no evidence of pulmonary hypertension. Great Vessels The asc aorta is normal in size. Venous The inferior vena cava is normal in size and collapses greater than 50% with inspiration. Pericardium/Pleural There is no evidence of pericardial effusion. Measurements 2D Linear Measurements IVSd: 1.37 0.6-0.9/0.6-1.0 cm LVIDd: 4.63 3.9-5.3/4.2-5.9 cm LVIDd Index: 1.75 2.4-3.2/2.2-3.1 cm/m2 LVIDs: 2.62 2.0-3.6 cm LVPWd: 1.36 0.7-1.1 cm Ao Root: 3.40 2.1-3.5 cm LA Diam: 3.90 2.7-3.8/3.0-4.0 cm LAIDs Index: 1.48 1.5-2.3 cm/m2 LV Mass: 311.41 67-162/88-224 g LV Mass Index: 117.96 43-95/49-115 g/m2 LVOT Diam: 2.00 3.0+(-)1.3 cm 2D Systolic Function EF 4C: 53.30 >55% EF 2C: 70.60 >55% EF BiP: 60.50 >55% Mitral Valve MV Pk E: 0.65 MV PK A: 0.83 MV Decel Time: 264.00 E/A: 0.80 E'Lateral: 9.68 E'Medial: 5.55 E/E' Med: 11.70 E/E' Lat: 6.70 PHT: 77.00 MVA PHT: 2.86 Decel [place]: 2.47 Aortic Valve AoV Pk Markie: 2.13 AoV Mn Markie: 1.35 AoV VTI: 0.46 AoV Pk Grad: 18.00 Aov Mn Grad: 9.00 BONI Cont.VTI: 1.27 LVOT LVOT Pk Markie: 0.76 LVOT Mn Markie: 0.47 LVOT VTI: 0.19 LVOT Pk Grad: 2.00 LVOT Mn Grad: 1.00 LVOT Diam: 2.00 LVOT Area: 3.14 Diastolic Function MV Pk E: 0.65 MV Pk A: 0.83 E/A: 0.80 E'Medial: 5.55 E/E' Med: 11.70 E' Laterial: 9.68 E/E' Lat: 6.70 Right Ventricle TAPSE (mm): 25.00 TVS' Markie: 9.00 Tricuspid Valve TR Pk Markie: 2.01 TR Pk Grad: 16.00 RA Press: 3.00 RVSP: 19.00 Great Vessels Aorta Ao Root-2D: 3.40 2.0-3.7 cm Ao Asc: 3.80 2.1-3.4 cm Pulmonary Valve PV Pk Markie: 0.53 Peak PV Grad: 1.00 Updated in Other Vendor System with Status of Final Daniel Blake MD electronically signed on 12/04/2024 2:48:18 PM with status of Final
--- OUTSIDE RECORDS SUMMARY | 2024-12-02 09:36 | XMS_ITS | Encounter Summary ---
Author Organization [employer] Address [address] [place] [address] Care Team Providers Care Mannequin Sander And Finisher Name Role Phone Unavailable Primary Care Provider Unavailabl e Encounter Details Date Type Department Care Team ([facility] st Contact Info) Description 07/19/2022 Orders Only [facility] [address] [place] [address] Lauro Washington MD [address] [place] [address] Primary insomnia (Primary Dx) Social History Tobacco Use Types Packs/Day Years Used Date Smoking Tobacco: Never Assessed Sex and Gender Information Value Date Recorded Sex Assigned at Male 05/28/2022 10:36 AM EDT Legal Sex Male 10:36 AM EDT Gender Identity Male 05/28/2022 10:36 AM EDT Sexual Orientation Straight 05/28/2022 10 :36 AM EDT documented as of this encounter Plan of Treatment Not on file documented as of this encounter Visit Diagnoses Diagnosis Primary insomnia- Primary Persistent disorder of initiating or maintaining sleep documented in this encounter
--- OUTSIDE RECORDS SUMMARY | 2024-12-02 09:36 | XMS_ITS | Encounter Summary ---
Author Organization [employer] Address [address] [facility] [address]t [place] [address] Care Team Providers Care Money Laundering Investigator Name Role Phone Unavailable Primary Care Provider Unavailabl e Reason for Visit * Reason Onset Date Comments Results 07/16/2023 Encounter Details Date Type Department Care Team ([facility] Contact Info) Description 07/16/2023 Telephone [facility] CHC MED & PEDS [address] [place] [address] Lauro Washington MD [address] [place] [address] Results Social History Tobacco Use Types Packs/Day Years Used Date Smoking Tobacco: Never Assessed Housing Stability Answer Date Recorded What is your housing situation today? Not on adrianne e 07/17/[address] you li ve. Do you have problems with any of the following? None of the above 07/17/2023 Food Insecurity Answer Date Recorded Within the past 12 months, y ou worried that your food would run out before you got money to buy more: Never True 07/17/2023 Within the past 12 months,th e food you bought just didn't last and you didn't have enough money to get more: Often true Transportation Answer Date Recorded In the past 12 months, has l ack of transportation kept you from medical appts, meetings, work or from getting things needed for daily living? No 07/17/2023 Utilities Answer Date Recorded In the past 12 months, has t he electric, gas, oil or water company threatened to shut off services in your home? Yes 07/17/2023 Sex and Gender Information Value Date Recorded Sex Assigned at Male 05/28/2022 10:36 AM EDT Legal Sex Male 10:36 AM EDT Gender Identity Male 05/28/2022 10:36 AM EDT Sexual Orientation Straight 05/28/2022 10 :36 AM EDT documented as of this encounter Miscellaneous Notes * Telephone Encounter - Crys Marquez RN - 07/17/2023 8:46 AM EST Returned call to pt regarding message below. Pt agrees to televisit today with PCP to discuss CT scan results and need for abx and cough med and discuss concerns with INR. * Telephone Encounter - Hawk Gabriel - 07/17/2023 8:12 AM EST Tc from patient calling in regards to message below also wanted to inform PCP that the INR flow is out of range and would like to know what to take to get back in range. * Telephone Encounter - Crys Marquez RN - 07/16/2023 3:23 PM EST Returned call to pt regarding message below. Pt states was called this morning from [facility] regarding his CT angio results. They told pt that it appears pt may have pneumonia on the R lower lobe. Pt is requesting abx if needed and something prescribed for cough. Pt informed message would be sent to PCP for review as results are in pt chart. Pt agrees with plan. * Telephone Encounter - Ollie Cabrera - 07/16/2023 9:11 AM EST Tc from pt giving a call to report some MRI results and INR results as well. Please contact pt @ [phone] documented in this encounter Plan of Treatment Not on file documented as of this encounter Visit Diagnoses Not on filedocumented in this encounter
--- OUTSIDE RECORDS SUMMARY | 2024-12-02 09:36 | XMS_ITS | Referral Summary ---
Author Organization [facility] Address [address] [place] [address] Care Team Providers Care Manager Employee Relations Name Role Phone Lauro Washington Primary Care Provider [phone] Encounters Date Type Department Care Team Description 09/18/2024 Telephone [facility] Vascular Surgery [address] [place] [address] [phone] Leather Fitter: Rolo Moser MD from Last 3 Months Allergies No known active allergies Medications amLODIPine (NORVASC) 10 mg tablet Take 10 mg by mouth once a day. 10/23/2021 Active atorvastatin (LIPITOR) 40 mg tablet TAKE ONE TABLET DAILY 10/09/2021 Active carvediloL (COREG) 12.5 mg tablet Take 12.5 mg by mouth 2 times a day. 10/09/2021 Active furosemide (LASIX) 80 mg tablet Take 80 mg by mouth once a day. 09/25/2021 Active losartan (COZAAR) 50 mg tablet Take 50 mg by mouth once a day. 09/25/2021 Active oxyCODONE (ROXICODONE) 10 mg tablet Take 10 mg by mouth 2 times a day as needed for pain. 11/24/2021 Active potassium chloride ER (KLOR-CON) 10 mEq tablet Take 10 mEq by mouth. Active traZODone (DESYREL) 150 mg tablet Take 300 mg by mouth nightly. 10/23/2021 Active warfarin (COUMADIN) 2 mg tablet Take 2 mg by mouth. 08/15/2021 Active warfarin (COUMADIN) 3 mg tablet Take 3 mg by mouth. 12/12/2021 Active zolpidem (AMBIEN) 10 mg tablet Take 10 mg by mouth nightly as needed. 12/12/2021 Active Active Problems Problem Noted Date Diagnosed Date Dissection of thoracoabdominal aorta 01/13/2024 Assessment & Plan (01/13/2024 12:59 PM EDT): Mr. Diaz is a pleasant 62 y.o. 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 We discussed given his prior surgical history and co-morbidities, his aortic anatomy, repair would be quite complex, requiring at least 3-4 staged surgeries. Following a risk benefit discussion with the patient and his we decided on repeat evaluation in 6 months with CTA CAP for surveillance, if at this point there is interval expansion of his aneurysm we will discuss possible repair options. Abdominal aortic aneurysm (AAA) without rupture 07/08/2023 Social History Tobacco Use Types Packs/Day Years Used Date Smoking Tobacco: Former Cigarettes Q uit: 07/28/1997 Smokeless Tobacco: Never Tobacco Cessation:Counseling Given: Not Answered Sex and Gender Information Value Date Recorded Sex Assigned at Male 01/06/2024 10:08 AM EDT Legal Sex Male 2:36 PM EDT Gender Identity Male 01/06/2024 10:08 AM EDT Sexual Orientation Straight 01/06/2024 10 :08 AM EDT Last Filed Vital Signs Vital Sign Reading Time Taken Comments Blood Pressure 95/56 07/13/2024 9:50 AM EST Pulse 70 07/13/2024 9:50 AM EST Temperature - - Respiratory Rate 18 07/13/2024 9:50 AM EST Oxygen Saturation 94% 07/13/2024 9:50 AM EST Inhaled Oxygen Concentration - - Weight 149.7 kg (330 lb) 07/13/2024 9:50 AM EST Height 182.9 cm (6') 07/13/2024 9:50 AM EST Body Mass Index 44.76 07/13/2024 9:50 AM EST Plan of Treatment Upcoming Encounters Date Type Department Care Team (Late st Contact Info) Description 12/28/2024 9:15 AM EDT Appointment [facility] CT Scan [address] [place] [address] 12/28/2024 10:00 AM EDT Follow-Up [facility] Building Vascular Surgery [address] [place] [address] Leather Fitter: Rolo Moser MD [address] [place] [phone] Procedures * Due to [place] law, this organization might not be sharing negative HIV tests. Procedure Name Priority Date/Time Associated Diagnosis Comments CT ANGIOGRAM ABDOMEN PELVIS W WO CONTRAST Routine 07/13/2024 9:14 AM EST Dissection of thoracoabdominal aorta from Last 3 Months or Most Recently Relevant to Health Maintenance Results * Due to [place] law, this organization might not be sharing negative HIV tests. * CT Angiogram Abdomen Pelvis W WO Contrast (07/13/2024 9:14 AM EST) Anatomical Region Laterality Modality Body Computed Tomogra phy 07/13/2024 9:28 AM EST Impressions 07/13/2024 9:50 AM EST Thoracoabdominal aortic aneurysm and dissection status post repair of type A dissection. ??No significant interval change in the extent of dissection when compared to the prior study of 01/13/2024. Stable extension of the dissection into the origine of right common femoral artery. Stable asymetry of renal opacification on the right due to false lumen origin If this radiology report contains a blank impression section, it is an incomplete radiology report. ??Please contact the interpreting radiologist or applicable radiology division as soon as possible to obtain the completed interpretation. ? Workstation ID: [id number] Narrative 07/13/2024 9:50 AM EST EXAMINATION: CT ANGIOGRAM ABDOMEN PELVIS W WO CONTRAST INDICATION: Thoracoabdominal aortic aneurysm and repair of type A dissection with flap extension into the right innominate artery. TECHNIQUE: Images of the abdomen and pelvis were obtained without intravenous contrast. Subsequently, intravenous contrast was administered and arterial phase images were obtained. Coronal and sagittal reformats were generated. 3D postprocessed reformats were also created. COMPARISON: 01/13/2024. ?? FINDINGS: LOWER THORAX: Please refer to the chest CT. VASCULAR: The dissection extend into the abdominal aorta, without significant change. The proximal abdominal aorta is stable in size. No chnage on the celaic aout of the true lumen. The intimal flat within the SMA is stable. No change in the renal arteries, the left from the true and the right from the false. The IVAN is from the stuart lumen and patent. No change in caliber along the abdominal aorta. The dissection is stable into the origin of the right common femoral artery. HEPATOBILIARY: No focal hepatic lesions. No biliary ductal dilatation. Cholelithiasis into the gallbladder. SPLEEN: No splenomegaly. PANCREAS: No focal masses or ductal dilatation. ADRENAL GLANDS: No adrenal nodules. KIDNEYS/URETERS: No hydronephrosis, calculi, or solid mass lesions. Stable left renal cyst. GI TRACT: No distention or wall thickening. PERITONEUM/RETROPERITONEUM: No ascites or free air. LYMPH NODES: No lymphadenopathy. PELVIC ORGANS/BLADDER: Unremarkable. BONES AND SOFT TISSUES: Unremarkable. Resulting Agency Comment [id number] Procedure Note Jerrell Arriaza MD - 07/13/2024 EXAMINATION: CT ANGIOGRAM ABDOMEN PELVIS W WO CONTRAST INDICATION: Thoracoabdominal aortic aneurysm and repair of type Adissection with flap extension into the right innominate artery. TECHNIQUE: Images of the abdomen and pelvis were obtained withoutintravenous contrast. Subsequently, intravenous contrast was administeredand arterial phase images were obtained. Coronal and sagittal reformatswere generated. 3D postprocessed reformats were also created. COMPARISON: 01/13/2024. FINDINGS: LOWER THORAX: Please refer to the chest CT. VASCULAR: The dissection extend into the abdominal aorta, withoutsignificant change. The proximal abdominal aorta is stable in size. Nochnage on the celaic aout of the true lumen. The intimal flat within theSMA is stable. No change in the renal arteries, the left from the true andthe right from the false. The IVAN is from the stuart lumen and patent. Nochange in caliber along the abdominal aorta. The dissection is stable intothe origin of the right common femoral artery. HEPATOBILIARY: No focal hepatic lesions. No biliary ductal dilatation.Cholelithiasis into the gallbladder. SPLEEN: No splenomegaly. PANCREAS: No focal masses or ductal dilatation. ADRENAL GLANDS: No adrenal nodules. KIDNEYS/URETERS: No hydronephrosis, calculi, or solid mass lesions. Stableleft renal cyst. GI TRACT: No distention or wall thickening. PERITONEUM/RETROPERITONEUM: No ascites or free air. LYMPH NODES: No lymphadenopathy. PELVIC ORGANS/BLADDER: Unremarkable. BONES AND SOFT TISSUES: Unremarkable. IMPRESSION: Thoracoabdominal aortic aneurysm and dissection status post repair of typeA dissection. No significant interval change in the extent of dissectionwhen compared to the prior study of 01/13/2024. Stable extension of thedissection into the origine of right common femoral artery. Stableasymetry of renal opacification on the right due to false lumen origin If this radiology report contains a blank impression section, it is anincomplete radiology report. Please contact the interpreting radiologistor applicable radiology division as soon as possible to obtain thecompleted interpretation. Workstation ID: [id number] Rolo Velez MD IMG CT PROCEDURES Final Resul t from Last 3 Months or Most Recently Relevant to Health Maintenance Insurance MEDICARE Care Teams Manager Employee Relations Relationship Specialty Start Date End Date Lauro Washington [address] [place] [phone] PCP - General Internal Medicine 10/27/21
--- OUTSIDE RECORDS SUMMARY | 2024-12-02 09:37 | XMS_ITS | Encounter Summary ---
Author Organization [employer] Address [address] [facility] 7t [place] [address] Care Team Providers Care Intermediate Project Manager Name Role Phone Unavailable Primary Care Provider Unavailabl e Encounter Details Date Type Department Care Team ([facility] st Contact Info) Description 07/10/2022 Orders Only [facility] [address] [place] [address] Rosi Cruz RN [address] [place] [address] Social History Tobacco Use Types Packs/Day Years [...]
--- OUTSIDE RECORDS SUMMARY | 2024-12-02 09:37 | XMS_ITS | Clinical Summary ---
Author Organization [facility] Address [address] [place] [address] Care Team Providers Care Rate Marker Name Role Phone Lauro Washington Primary Care Provider [phone] Allergies No known active allergies Medications amLODIPine [...] Abdominal aortic aneurysm (AAA) without rupture 07/08/2023 Encounters Date Type Department Care Team Description 09/18/2024 Telephone [facility] Vascular Surgery [address] [place], [place] [phone] Marine Superintendent: Rolo Moser MD from Last 3 Months Family History Medical History Relation Name Comments Cancer Brother Cancer Father Cancer Mother Relation Name Status Comments Brother Father Mother Social History Tobacco Use Types Packs/Day Years [...] Info) Description 12/28/2024 9:15 AM EDT Appointment [facility] CT Scan [address] [place] [address] 12/28/2024 10:00 AM EDT Follow-Up [facility] Building Vascular Surgery [address] [place] [address] Marine Superintendent: Rolo Moser MD [address] [place] [address] Health Maintenance Due Date Last Done Comments Colonoscopy 1961 HIV Screening 1960 Hepatitis C Screening 1961 Sigmoidoscopy 1960 Medicare AWV 1962 RSV Vaccine (60+ years old and patients) (1 - Risk 60-74 years 1-dose series) 2021 FOBT / Fit Test 02/15/2023 02/15/2022 COVID-19 Vaccine ( season) 2024 05/18/2022, 07/10/2021, 10/26/2020, Additional history exists Alcohol/Substance Use Screening 07/29/2024 Depression Screening and Follow-Up 07/29/2024 Social Drivers of Health Annual Screening 07/29/2024 Influenza Vaccine (Season Ended) 2025 05/15/2022, 05/22/2021, 05/14/2019 Cologuard 08/26/2026 08/26/2023, 08/26/2023 Colon Cancer Screening 08/26/2026 DTaP,Tdap,and Td Vaccines (2 - Td or Tdap) 06/02/2029 06/02/2019 Zoster Vaccines Completed 08/18/2019, 07/30, 06/17/2019, Additional history exists Pneumococcal Vaccine: 50+ Years Completed 06/01/2022 Abdominal Aortic Aneurysm (AAA) Screening Completed 07/13/2024, 06/15/2024, 01/13/2024, Additional history exists Hepatitis B Vaccines Aged Out No long er eligible based on patient's age to complete this topic Procedures * Due to [place] state law, this organization might not be sharing negative HIV tests. Procedure Name Priority Date/Time Associated Diagnosis Comments CT ANGIOGRAM ABDOMEN PELVIS W WO CONTRAST Routine 07/13/2024 9:14 AM EST Dissection of thoracoabdominal aorta from Last 3 Months or Most Recently Relevant to Health Maintenance Results * Due to [place] state law, this organization might not be sharing [...] obtain the completed interpretation. ? Workstation ID: [id number] Narrative 07/13/2024 9:50 AM EST EXAMINATION: CT [...] AND SOFT TISSUES: Unremarkable. Resulting Agency Comment [id number] Procedure Note Jerrell Arriaza MD - 07/13/2024 [...] possible to obtain thecompleted interpretation. Workstation ID: [id number] Rolo Velez MD IMG CT PROCEDURES Final Resul t from Last 3 Months or Most Recently Relevant to Health Maintenance Insurance MEDICARE Care Teams Rate Marker Relationship Specialty Start Date End Date Lauro Washington [address] [place] [phone] PCP - General Internal Medicine 10/27/21
--- OUTSIDE RECORDS SUMMARY | 2024-12-02 09:37 | XMS_ITS | Encounter Summary ---
Author Organization [facility] Address [address] [place] [address] Care Team Providers Care Poultry Farmer Name Role Phone Lauro Washington Primary Care Provider [phone] Encounter Details Date Type Department Care Team (Late st Contact Info) Description 01/07/2023 Documentation [facility] Vascular Surgery [address] [place] [phone] Parts Advisor: Nayana Caballero MD [address] [place] [phone] Social History Tobacco Use Types Packs/Day Years Used Date Smoking Tobacco: Former Cigarettes Q uit: 07/28/1997 Smokeless Tobacco: Never Sex and Gender Information Value Date Recorded Sex Assigned at Male 01/06/2024 10:08 AM EDT Legal Sex Male 2:36 PM EDT Gender Identity Male 01/06/2024 10:08 AM EDT Sexual Orientation Straight 01/06/2024 10 :08 AM EDT documented as of this encounter Plan of Treatment Upcoming Encounters Date Type Department Care Team (Late st Contact Info) Description 12/28/2024 9:15 AM EDT Appointment [facility] CT Scan [address] [place] [address] 12/28/2024 10:00 AM EDT Follow-Up [facility] Vascular Surgery [address] [place] [phone] Parts Advisor: Rolo Moser MD [address] [place] [address] [phone] documented as of this encounter Procedures * Due to [place] state law, this organization might not be sharing negative HIV tests. Procedure Name Priority Date/Time Associated Diagnosis Comments ILLUMINATE AORTIC ANEURYSM SCREENING 01/07/2023 2:57 PM EDT documented in this encounter Results * Due to [place] [employer] law, this organization might not be sharing negative HIV tests. * Illuminate Aortic Aneurysm Screening (01/07/2023 2:57 PM EDT) Followed by Internal Vascular,Internal Vascular [facility] Aneurysm Size (cm) 6.0 cm [facility] Leak Status [facility]INA TE [facility] Aneurysm Repair Status [facility] Review Date 02/10/2024 [facility] Aneurysm Location Abdominal [facility] Comments: snooze for 6 mos f/u These results were created by staff from the [facility] program, a division of vascular surgery, based on the review of an existing imaging report. [employer] [facility] Image Date [id number] ILLU MINATE ANALYT[facility] Modality CT [facility] Accession Number [id number] [facility] 01/07/2023 2:57 PM EDT us Aorta Screening Keon [facility] STUDIE S Final Result [employer] documented in this encounter Visit Diagnoses Not on filedocumented in this encounter Care Teams Poultry Farmer Relationship Specialty Start Date End Date Lauro Washington [address] [place] [phone] PCP - General Internal Medicine 10/27/21 documented as of this encounter
--- OUTSIDE RECORDS SUMMARY | 2024-12-02 09:37 | XMS_ITS | Encounter Summary ---
Author Organization [facility] Address [address] [place] [address] Phone Care Team Providers Care Special Education Inclusion Teacher Name Role Phone Lauro Washington MD Primary Care Provider [phone] Encounter Details Date Type Department Care Team (Late st Contact Info) Description 01/24/2022 Documentation Only [facility], [address] [place] [address] Wendy Hurst PA Social History Tobacco Use Types Packs/Day Years Used Date Smoking Tobacco: Never Alcohol Use Standard Drinks/Week Comments Defer 0 (1 standard drink = 0.6 oz pur e alcohol) Sex and Gender Information Value Date Recorded Sex Assigned at Not on file Legal Sex Male 9:35 AM EDT Gender Identity Not on file Sexual Orientation Not on file documented as of this encounter Plan of Treatment Not on file documented as of this encounter Visit Diagnoses Not on filedocumented in this encounter Care Teams Special Education Inclusion Teacher Relationship Specialty Start Date End Date Lauro Washington MD PCP - General Internal Medicine 10/09/19 documented as of this encounter
--- OUTSIDE RECORDS SUMMARY | 2024-12-02 09:37 | XMS_ITS | Encounter Summary ---
Author Organization [employer] Address [address] [facility] 7t [place] [address] Care Team Providers Care Information Delivery Analyst Name Role Phone Unavailable Primary Care Provider Unavailabl e Encounter Details Date Type Department Care Team ([facility] Contact Info) Description 01/28/2024 Orders Only [facility] [address] [place], [place] [phone] ProviderRaz MD Social History Tobacco Use Types Packs/Day Years [...]
--- OUTSIDE RECORDS SUMMARY | 2024-12-02 09:37 | XMS_ITS | Encounter Summary ---
Author Organization [facility] Address [address] [place] [address] Care Team Providers Care Wood Boring Machine Operator Name Role Phone Lauro Washington Primary Care Provider [phone] Encounter Details Date Type Department Care Team (Late st Contact Info) Description 03/29/2022 Orders Only [facility] XRay [address] [place] [address] Jaye Uerna MD [address] [place], [place] [phone] Social History Tobacco Use Types Packs/Day Years [...] Info) Description 12/28/2024 9:15 AM EDT Appointment [facility] CT Scan [address] [place], [place] [phone] 12/28/2024 10:00 AM EDT Follow-Up [facility] Building Vascular Surgery [address] [place], [place] [phone] Spring Repairer Helper Hand: Rolo Moser MD [address] [place] [address] documented as of this encounter Visit Diagnoses Not on filedocumented in this encounter Care Teams Wood Boring Machine Operator Relationship Specialty Start Date End Date Lauro Washignton [address] [place] [address] PCP - General Internal Medicine 10/27/21 documented as of this encounter
--- OUTSIDE RECORDS SUMMARY | 2024-12-02 09:37 | XMS_ITS | Encounter Summary ---
Author Organization [employer] Address [address] [facility] 7t [place] [address] Care Team Providers Care Copyholder Name Role Phone Unavailable Primary Care Provider Unavailabl e Reason for Visit * Reason Comments Med Refill Encounter Details Date Type Department Care Team ([facility] st Contact Info) Description 07/09/2022 Refill [facility] CHC MED & PEDS [address] [place] [address] Lauro Washington MD [address] [place] [address] Essential (primary) hypertension (Primary Dx); Hypokalemia; Other hyperlipidemia Social History Tobacco Use Types Packs/Day Years Used Date Smoking Tobacco: Never Assessed Sex and Gender Information Value Date Recorded Sex Assigned at Male 05/28/2022 10:36 AM EDT Legal Sex Male 10:36 AM EDT Gender Identity Male 05/28/2022 10:36 AM EDT Sexual Orientation Straight 05/28/2022 10 :36 AM EDT documented as of this encounter Miscellaneous Notes * Telephone Encounter - Barb Zepeda LPN - 07/16/2022 9:31 AM EST Pharmacy requesting trazodone 150mg ,epic wont let reorder medication documented in this encounter Plan of Treatment Not on file documented as of this encounter Visit Diagnoses Diagnosis Essential (primary) hypertension- Primary Unspecified essential hypertension Hypokalemia Hypopotassemia Other hyperlipidemia documented in this encounter
--- OUTSIDE RECORDS SUMMARY | 2024-12-02 09:37 | XMS_ITS | Clinical Summary ---
Author Organization [employer] Address [address] [facility] 7t [place] [address] Care Team Providers Care Supervisor Slate Splitting Name Role Phone Unavailable Primary Care Provider Unavailabl e Allergies No known active allergies Medications triamcinolone (Kenalog) 0.1 % cream Apply topically every 12 (twelve) hours. A thin layer to the affected area(s) 02/13/20 22 Active sennosides (Senokot) 8.6 MG tablet Take 1-2 tablets by mouth if needed at bedtime. 02/13/20 22 Active guaiFENesin (Mucinex) 600 MG 12 hr tablet Take 1 tablet by mouth every 12 (twelve) hours if needed. 10/20/19 22 Active cholestyramine light (Prevalite) 4 GM/DOSE powder take 1 packet by oral route once every day dissolved in 2 to 6 ounces of water or noncarbonated beverage before meals 09/15/19 22 Active amoxicillin (Amoxil) 500 MG capsule 2 g 30 to 60 minutes before procedure. 12/23/19 21 Active Lidocaine, Anorectal, 5 % cream to apply to the affected area 2 times a day 08/11/19 21 Active zoster vaccine-recombinant adjuvanted (Shingrix) 50 MCG/0.5ML vaccine Inject 0.5 mL into the shoulder, thigh, or buttocks. 06/17/20 19 Active naloxone (Narcan) 4 mg/0.1 mL nasal spray FOR SUSPECTED OPIOID OVERDOSE. SPRAY 0.1mL IN ONE NOSTRIL. REPEAT IN ALTERNATE NOSTRIL EVERY 2-3 MINUTES IF NEEDED. SEEK MEDICAL ATTENTION IMMEDIATELY EVEN IF PT RESPONDS. 05/29/20 22 Active amLODIPine (Norvasc) 10 MG tabletIndications:E ssential (primary) hypertension Take 1 tablet (10 mg) by mouth in the morning. 90 tablet 3 03/06/20 23 Active atorvastatin (Lipitor) 40 MG tabletIndications:H ypercholesterolemia Take 1 tablet (40 mg) by mouth in the morning. 90 tablet 3 03/06/20 Active carvedilol (Coreg) 12.5 MG tabletIndications:E ssential (primary) hypertension Take 1 tablet (12.5 mg) by mouth 2 times daily. With food 180 tablet 3 03/06/20 Active cholestyramine light (Prevalite) 4 g packet DISSOLVE 1 PACKET IN 2-6 OUNCES OF WATER OR NONCARBONATED BEVERAGE AND DRINK ONCE DAILY BEFORE A MEAL 90 packet 2 03/06/20 Active furosemide (Lasix) 20 MG tablet Take 3 tablets (60 mg) by mouth in the morning. 90 tablet 1 03/06/20 Active losartan (Cozaar) 50 MG tabletIndications:E ssential (primary) hypertension Take 1 tablet (50 mg) by mouth in the morning. 90 tablet 3 03/06/20 23 Active traZODone (Desyrel) 300 MG tabletIndications:P rimary insomnia Take 1 tablet (300 mg) by mouth every 12 (twelve) hours for 360 doses. With food 90 tablet 3 03/06/20 23 Active warfarin (Coumadin) 1 MG tabletIndications:H /O aortic valve replacement,Dissect ion of thoracoabdominal aorta (CMS/HCC) TAKE ONE TABLET BY MOUTH EVERY DAY OR MOST RECENTLY DIRECTED BY COUMADIN CLINIC 90 tablet 03/06/20 23 Active zolpidem (Ambien) 10 MG tabletIndications:P rimary insomnia Take 1 tablet (10 mg) by mouth if needed at bedtime for sleep. 90 tablet 04/23/20 23 Active warfarin (Coumadin) 2 MG tabletIndications:H istory of aortic valve replacement TAKE ONE TABLET BY MOUTH AT BEDTIME 60 tablet 07/01/20 23 Active warfarin (Coumadin) 3 MG tabletIndications:H /O aortic valve replacement TAKE ONE TABLET BY MOUTH EVERY DAY MOST RECENTLY DIRECTED BY COUMDIN CLINIC 90 tablet 07/01/20 23 Active furosemide (Lasix) 80 MG tablet TAKE ONE TABLET BY MOUTH EVERY DAY IN THE MORNING 30 tablet 3 07/09/20 23 Active potassium chloride ER (Micro-K) 10 MEQ ER capsuleIndications: Essential (primary) hypertension TAKE ONE CAPSULE BY MOUTH EVERY DAY WITH FOOD 90 capsule 3 07/17/20 23 Active zolpidem (Ambien) 10 MG tabletIndications:P rimary insomnia TAKE ONE TABLET BY MOUTH EVERY EVENING AT BEDTIME NEEDED FOR SLEEP 90 tablet 07/17/20 23 Active oxyCODONE (Roxicodone) 10 MG immediate release tabletIndications:C hronic pain syndrome Take 2 tablets (20 mg) by mouth if needed in the morning and at bedtime for severe pain. 56 tablet 08/01/19 24 Active Active Problems Problem Noted Date Diagnosed Date Chronic low back pain 07/10/2022 Nontraumatic compression fracture of thoracic ve rtebra 07/10/2022 Chronic kidney disease, stage 2 (mild) 2 Sleep apnea 01/16/2021 Essential (primary) hypertension 11/13/2019 Resolved Problems Problem Noted Date Diagnosed Date Resolved Date History of aortic valve replacement 07/10/2022 08/26/2023 Encounters Date Type Department Care Team Description 10/09/2024 Population Health Risk Score [facility] Department [address] [address] Provider, Population Health Generic from Last 3 Months Immunizations Name Administration Dates Next Due Influenza Injectable Quadriv alant Preservative Free IIV4 MDCK 05/15/2022,05/22/2021 Influenza injectable quadriv alent IIV4 with preservative 05/14/2019 Moderna Covid-19 Vaccine 12+ 07/10/2021,10/27/19 21,09/28/2020 Moderna Covid-19 Vaccine 6+ Bivalent 05/18/2022 Tdap 06/02/2019 Zoster, Recombinant 08/18/2019,06/17/2019 Social History Tobacco Use Types Packs/Day Years [...] Orientation Straight 05/28/2022 10 :36 AM EDT Last Filed Vital Signs Vital Sign Reading Time Taken Comments Blood Pressure 128/64 08/01/2023 1:49 PM EST Pulse 86 08/01/2023 1:49 PM EST Temperature 37.8 ??C (100 ??F) 12/03/2022 10:05 AM ED T Respiratory Rate 16 08/01/2023 1:49 PM EST Oxygen Saturation - - Inhaled Oxygen Concentration - - Weight 143 kg (316 lb) 12/03/2022 10:05 AM EDT Height 177.8 cm (5' 10 ) 12/03/2022 10:05 AM EDT Body Mass Index 45.34 12/03/2022 10:05 AM EDT Plan of Treatment Health Maintenance Due Date Last Done Comments CT Colonography 1961 Colonoscopy 1961 Depression Screening 1961 FIT 1961 FOBT 1961 HIV Screening 1961 Sigmoidoscopy 1961 Alcohol/Substance Use Screening 1973 Tobacco Screening 1973 Hepatitis C Screening 1979 RSV Patients and Patients Aged 60 years or older (1 - Risk 60-74 years 1-dose series) 2021 COVID-19 Vaccine ( season) 2024 06/17/2023, 05/18/2022, 07/10/2021, Additional history exists Influenza Vaccine (#1) 2024 3, 05/15/2022, 05/22/2021, Additional history exists SDOH Screening 07/17/2024 07/17/2023 Colorectal Cancer Screening 08/26/2026 FIT DNA/Cologuard 08/26/2026 08/26/2023 Lipid Panel 02/15/2027 02/15/2022 DTaP/Tdap/Td Vaccines (2 - Td or Tdap) 06/02/2029 06/02/2019 Zoster Vaccines Completed 08/18/2019, 06/17/2019 Pneumococcal Vaccine: 50+ Years Completed 06/01/2022 HIB Vaccines Aged Out No longer eligi ble based on patient's age to complete this topic HPV Vaccines Aged Out No longer eligi ble based on patient's age to complete this topic Hepatitis A Vaccines Aged Out No long er eligible based on patient's age to complete this topic Hepatitis B Vaccines Aged Out No long er eligible based on patient's age to complete this topic IPV Vaccines Aged Out No longer eligi ble based on patient's age to complete this topic Meningococcal Vaccine Aged Out No sukumar awa eligible based on patient's age to complete this topic RSV under 20 months Aged Out No longe r eligible based on patient's age to complete this topic Rotavirus Vaccines Aged Out No longer eligible based on patient's age to complete this topic Procedures Procedure Name Priority Date/Time Associated Diagnosis Comments LIPID PANEL, STANDARD Routine 02/15/2022 8:33 AM EDT from Last 3 Months or Most Recently Relevant to Health Maintenance Results * LIPID PANEL, STANDARD (02/15/2022 8:33 AM EDT) Chol/HDLC Ratio 2.5 <5.0 (calc) [facility] Cholesterol, Total 128 <200 mg/dL [facility] HDL Cholesterol 52 > OR = 40 mg/dL [facility] LDL Cholesterol 63 mg/dL (calc) [facility] Comment: Reference range: <100 ?? Desirable range <100 mg/dL for primary prevention; ?? <70 mg/dL for patients with CHD or diabetic patients ?? with > or = 2 CHD risk factors. ?? LDL-C is now calculated using the Skyler-Ann ?? calculation, which is a validated novel method providing ?? better accuracy than the Friedewald equation in the ?? estimation of LDL-C. ?? Skyler SS et al. CLAUDIA. 2013;310(19): 2104-3912 ?? (http://education.[employer]/faq/BXD203) Non-HDL Cholesterol 76 <130 mg/dL (calc) [facility] Comment: For patients with diabetes plus 1 major ASCVD risk ?? factor, treating to a non-HDL-C goal of <100 mg/dL ?? (LDL-C of <70 mg/dL) is considered a therapeutic ?? option. Triglycerides 58 <150 mg/dL [facility] 02/15/2022 8:33 AM EDT us Lauro Washington MD LAB BLOOD ORDERABLES Final Result [facility] [address] from Last 3 Months or Most Recently Relevant to Health Maintenance [place] [id number]
--- OUTSIDE RECORDS SUMMARY | 2024-12-02 09:37 | XMS_ITS | Encounter Summary ---
Author Organization [employer] Address [address] [facility] 7t [place] [address] Care Team Providers Care Automatic Oven Operator Name Role Phone Unavailable Primary Care Provider Unavailabl e Reason for Visit * Reason Comments Med Refill Encounter Details Date Type Department Care Team (Late st Contact Info) Description 12/04/2022 Refill [facility] MEDICINE [address] [place] [address] Lauro Washington MD [address] [place] [address] Primary insomnia Social History Tobacco Use Types Packs/Day Years Used Date Smoking Tobacco: Never Assessed Sex and Gender Information Value Date Recorded Sex Assigned at Male 05/28/2022 10:36 AM EDT Legal Sex Male 10:36 AM EDT Gender Identity Male 05/28/2022 10:36 AM EDT Sexual Orientation Straight 05/28/2022 10 :36 AM EDT COVID-19 Exposure Response Date Recorded In the last 10 days, have yo u been in contact with someone who was confirmed or suspected to have Coronavirus/COVID-19? No / Unsure 12/03/2022 9:30 AM EDT documented as of this encounter Plan of Treatment Not on file documented as of this encounter Visit Diagnoses Diagnosis Primary insomnia Persistent disorder of initiating or maintaining sleep documented in this encounter
--- OUTSIDE RECORDS SUMMARY | 2024-12-02 09:37 | XMS_ITS | Encounter Summary ---
Author Organization [facility] Address [address] [place] [address] Care Team Providers Care Manager Supply Chain Planning Name Role Phone Lauro Washington Primary Care Provider [phone] [phone] Encounter Details Date Type Department Care Team (Late st Contact Info) Description 01/07/2023 Documentation [facility] Vascular Surgery [address] [place] [phone] Loan Operations Manager: Nayana Caballero MD [address] [place] [phone] Social History Tobacco Use Types Packs/Day Years [...] Info) Description 12/28/2024 9:15 AM EDT Appointment [facility] CT Scan [address] [place] [address] 12/28/2024 10:00 AM EDT Follow-Up [facility] Vascular Surgery [address] [place] [phone] Loan Operations Manager: Rolo Moser MD [address] [place] [address] [phone] documented as of this encounter Procedures * Due to [place] state law, this organization might not be sharing negative HIV tests. Procedure Name Priority Date/Time Associated Diagnosis Comments ILLUMINATE AORTIC ANEURYSM SCREENING 01/07/2023 2:57 PM EDT documented in this encounter Results * Due to [place] Curb Call law, this organization might not be sharing negative HIV tests. * Illuminate Aortic Aneurysm Screening (01/07/2023 2:57 PM EDT) Followed by Internal Vascular,Internal Vascular [facility] Aneurysm Size (cm) 6.0 cm [facility] Leak Status ILLUMINA TE ANALYT[facility] Aneurysm Repair Status [facility] Review Date 09/17/2023 [facility] Aneurysm Location Abdominal [facility] Comments: snooze for 6 mos f/u w/ CTA These results were created by staff from the [facility] program, a division of vascular surgery, based on the review of an existing imaging report. [facility] Image Date [id number] ILLU MINATE ANALYTICS Modality CT ILLUMINATE [facility]ICOS Accession Number [id number] [facility]LLUMINAHotelic[facility] 01/07/2023 2:57 PM EDT us Aorta Screening Keon [facility] OUTSIDE STUDIE S Final Result [facility] documented in this encounter Visit Diagnoses Not on filedocumented in this encounter Care Teams Manager Supply Chain Planning Relationship Specialty Start Date End Date Lauro Washington [address] [place] [address] PCP - General Internal Medicine 10/27/21 documented as of this encounter
--- OUTSIDE RECORDS SUMMARY | 2024-12-02 09:37 | XMS_ITS | Clinical Summary ---
Author Organization [facility], Address [address] [place] [address] [place] [address] Phone Care Team Providers Care Structural Engineer Name Role Phone Lauro Washington MD Primary Care Provider [phone] Allergies No known active allergies Medications bumetanide (BUMEX) 2 MG tablet Take 2 mg by mouth 2 (two) times a day 09/21/2019 Active traZODone (DESYREL) 150 MG tablet Take 150 mg by mouth every night 09/21/2019 Active warfarin (COUMADIN) 3 MG tablet Take 1 tablet by oral route once daily OR as most recently directed by Coumadin Clinic. 09/15/2019 Active zolpidem (AMBIEN) 10 MG tablet Take 10 mg by mouth at night if needed 09/15/2019 Active losartan (COZAAR) 50 MG tablet Take 50 mg by mouth 1 (one) time each day Active carvedilol (COREG) 12.5 MG tablet Take 12.5 mg by mouth 2 (two) times a day with meals Active atorvastatin (LIPITOR) 40 MG tablet Take 40 mg by mouth 1 (one) time each day Active amLODIPine (NORVASC) 10 MG tablet Take 10 mg by mouth 1 (one) time each day Active oxyCODONE (ROXICODONE) 10 MG immediate release tablet TAKE TWO TABLETS BY MOUTH TWICE DAILY NEEDED. 10/05/2020 Active cholestyramine light 4 g packet Take 1 packet by mouth Active potassium chloride (KLOR-CON M10) 10 MEQ CR tablet Take 10 mEq by mouth 1 (one) time each day Do not crush or chew. Active furosemide (LASIX) 80 MG tablet Take 80 mg by mouth 1 (one) time each day 12/26/2021 Active Active Problems Problem Noted Date Diagnosed Date Hypervolemia 11/05/2022 Body mass index 40+ - severely obese 11/05/2022 Chronic kidney disease, stage 2 (mild) 2 Coronary arteriosclerosis 01/31/2022 Stage 3a chronic kidney disease 11/17/2019 Essential (primary) hypertension 11/13/2019 Type 2 diabetes mellitus without complication Resolved Problems Problem Noted Date Diagnosed Date Resolved Date Renal disorder due to type 2 diabetes mellitus 04/11/2020 04/24/2021 Diastolic dysfunction 04/11/20202020 Hypertensive heart and chron ic kidney disease with heart failure and stage 1 through stage 4 chronic kidney disease, or unspecified chronic kidney disease 12/03/2019 04/24/2021 Hypertensive heart and chron ic kidney disease without heart failure, with stage 1 through stage 4 chronic kidney disease, or unspecified chronic kidney disease 11/17/201912/01 Swelling 11/17/2019 12/02/2019 History of mechanical aortic valve replacement 11/17/2019 11/17/2019 Thoracic aortic aneurysm without rupture 11/17/2019 04/24/2021 Immunizations Immunization Administration Dates Next Due Zoster 08/18/2019,06/17/2019 Social History Tobacco Use Types Packs/Day Years Used Date Smoking Tobacco: Never Tobacco Cessation:Counseling Given: Not Answered Alcohol Use Standard Drinks/Week Comments Defer 0 (1 standard drink = 0.6 oz pur e alcohol) Sex and Gender Information Value Date Recorded Sex Assigned at Not on file Legal Sex Male 9:35 AM EDT Gender Identity Not on file Sexual Orientation Not on file Last Filed Vital Signs Vital Sign Reading Time Taken Comments Blood Pressure 124/72 11/05/2022 5:01 PM EDT Pulse - - Temperature - - Respiratory Rate - - Oxygen Saturation - - Inhaled Oxygen Concentration - - Weight 151 kg (332 lb) 11/05/2022 5:01 PM EDT Height - - Body Mass Index - - Plan of Treatment Health Maintenance Due Date Last Done Comments Pneumococcal Vaccine: 50+ Years (1 of 2 - PCV) 1980 Colorectal Cancer Screening: Annual FOBT 2010 Colorectal Cancer Screening: Colonoscopy 2010 Colorectal Cancer Screening: Sigmoidoscopy 2010 Diabetes: Ophthalmology Exam 11/13/2019 Diabetes: Pedal Pulse Checked 11/13/2019 Diabetes: Sensory Foot Exam 11/13/2019 Diabetes: Visual Foot Exam 11/13/2019 Diabetes: Hemoglobin A1C 05/02/2022 022, 04/24/2021 Influenza Vaccine (Season Ended) 2025 05/15/2022, 05/22/2021, 05/14/2019 Hepatitis B Vaccine Aged Out No longe r eligible based on patient's age to complete this topic Procedures Procedure Name Priority Date/Time Associated Diagnosis Comments HEMOGLOBIN A1C Routine 01/30/2022 5:47 PM EDT from Last 3 Months or Most Recently Relevant to Health Maintenance Results * Hemoglobin A1c (01/30/2022 5:47 PM EDT) Hemoglobin A1C 5.2 (4.0-5.6) % [facility] Comment: MONITORING: In known diabetic patients, hemoglobin A1c targets should be discussed with health care provider. DIAGNOSTIC USE: ??The [place] Diabetes Association (ADA) and the World Health Organization (WHO) recommend the use of HbA1c to diagnose diabetes using a threshold of 6.5%. Patients who have an HbA1c between 5.7% and 6.4% are considered at increased risk for developing diabetes in the future. CAUTION: Falsely low HbA1c results may be observed in patients with hemolytic anemia, homozygous forms of abnormal hemoglobin (e.g. SS, CC, SC), , recent blood loss or hemoglobin F greater than 7%. Fructosamine may be used as an alternate test in these cases. REFERENCE: ADA: Standards of Medical Care in Diabetes 2020, The Journal of Clinical and Applied Research and Education Volume 43, Supplement 1 Testing performed or reported by [facility], a Service of [facility], [address] [place] [address] Trinidad Chowdhury MD, Oil Furnace Installer [facility]# [id number] 01/30/2022 5:47 PM EDT 01/30/2022 5:51 PM EDT us Chente Clements MD LAB BLOOD ORDERABLES Final Resul t [facility] from Last 3 Months or Most Recently Relevant to Health Maintenance Insurance [facility] Medicare Care Teams Structural Engineer Relationship Specialty Start Date End Date Lauro Washington MD PCP - General Internal Medicine 10/09/19
--- OUTSIDE RECORDS SUMMARY | 2024-12-02 09:37 | XMS_ITS | Encounter Summary ---
Author Organization [facility] Address [address] [place] [address] Care Team Providers Care Processing Archivist Name Role Phone Lauro Washington Primary Care Provider [phone] Encounter Details Date Type Department Care Team (Late st Contact Info) Description 12/20/2021 Orders Only [facility] Interventional Radiology [address] [place] [phone] Carmen Manrique MD [address] [place] [address] Social History Tobacco Use Types Packs/Day Years [...] Info) Description 12/28/2024 9:15 AM EDT Appointment [facility] CT Scan [address] [place] [address] [phone] 12/28/2024 10:00 AM EDT Follow-Up [facility] Building Vascular Surgery [address] [place] [phone] Stitcher Feeder: Rolo Moser MD [address] [place] [phone] documented as of this encounter Visit Diagnoses Not on filedocumented in this encounter Care Teams Processing Archivist Relationship Specialty Start Date End Date Lauro Washington [address] [place] [address] PCP - General Internal Medicine 10/27/21 documented as of this encounter
--- OUTSIDE RECORDS SUMMARY | 2024-12-02 09:37 | XMS_ITS | Encounter Summary ---
Author Organization [employer] Address [address] [facility] [address] 7t [place] [address] Care Team Providers Care Blowing Engineer Name Role Phone Unavailable Primary Care Provider Unavailabl e Reason for Visit * Reason Comments Med Refill Encounter Details Date Type Department Care Team ([facility] st Contact Info) Description 04/01/2024 Refill [facility] MED & PEDS [address] [place] [address] Lauro Washington MD [address] [place] [address] Essential (primary) hypertension Social History Tobacco Use Types Packs/Day Years [...] this encounter Visit Diagnoses Diagnosis Essential (primary) hypertension Unspecified essential hypertension documented in this encounter
== END ==
LOC: HO.CARD 09:06
PROVIDERS: PCP Internal Medicine; Visit Provider Internal Medicine
DX: Z95.2 Presence of prosthetic heart valve (principal)
CPT/HCPCS: 93306

== ENCOUNTER → 2024-12-02 09:13 | Outpatient (BNV) | payer MEDICARE, SELFPAY | PROVIDERS: PCP Internal Medicine; Visit Provider Internal Medicine | DX: I51.7 Cardiomegaly (principal); Z95.2 Presence of prosthetic heart valve | CPT/HCPCS: 93306 ==

== ENCOUNTER 2024-12-08 08:12 | Outpatient (AMB) | payer MEDICARE, SELFPAY ==
--- OUTSIDE RECORDS SUMMARY | 2024-12-08 08:17 | XMS_ITS | Clinical Summary ---
Author Organization [facility] Address [address] [place] [address] Care Team Providers Care Hematology Nurse Name Role Phone Lauro Washington Primary Care Provider [phone] Allergies No known active allergies Medications amLODIPine [...] Type Department Care Team Description 09/18/2024 Telephone [facility] Vascular Surgery [address] [place], [place] [phone] Pet Care Attendant: Rolo Moser MD from Last 3 Months [...] Info) Description 12/28/2024 9:15 AM EDT Appointment [facility] CT Scan [address] [place] [address] 12/28/2024 10:00 AM EDT Follow-Up [facility] Building Vascular Surgery [address] [place] [address] Pet Care Attendant: Rolo Moser MD [address] [place] [address] Health Maintenance Due Date Last Done Comments [...] complete this topic Procedures * Due to [place] state law, this organization might not be sharing negative HIV tests. Procedure Name Priority Date/Time Associated Diagnosis Comments CT ANGIOGRAM ABDOMEN PELVIS W WO CONTRAST Routine 07/13/2024 9:14 AM EST Dissection of thoracoabdominal aorta from Last 3 Months or Most Recently Relevant to Health Maintenance Results * Due to [place] state law, this organization might not be [...] obtain the completed interpretation. ? Workstation ID: [id number] Narrative 07/13/2024 9:50 AM EST EXAMINATION: CT [...] AND SOFT TISSUES: Unremarkable. Resulting Agency Comment [id number] Procedure Note Jerrell Arriaza MD - 07/13/2024 [...] possible to obtain thecompleted interpretation. Workstation ID: [id number] us Rolo Velez MD IMG CT PROCEDURES Final Resul t from Last 3 Months or Most Recently Relevant to Health Maintenance Insurance MEDICARE Care Teams Hematology Nurse Relationship Specialty Start Date End Date Lauro Washington [address] [place] [phone] PCP - General Internal Medicine 10/27/21
--- OUTSIDE RECORDS SUMMARY | 2024-12-08 08:17 | XMS_ITS | Encounter Summary ---
Author Organization [employer] Address [address] [facility] 7t [place] [address] Care Team Providers Care Dean Of Men Name Role Phone Unavailable Primary Care Provider Unavailabl e Encounter Details Date Type Department Care Team ([facility] st Contact Info) Description 07/19/[address] [facility] MEDICINE [address] [place] [address] Lauro Washington MD [address] [place] [address] Primary insomnia (Primary Dx) Social History Tobacco [...]
--- OUTSIDE RECORDS SUMMARY | 2024-12-08 08:17 | XMS_ITS | Encounter Summary ---
Author Organization [facility] Address [address] [place] [phone] Care Team Providers Care Photography Editor Name Role Phone Lauro Washington Primary Care Provider [phone] Encounter Details Date Type Department Care Team (Late st Contact Info) Description 12/20/2021 Orders Only [facility] Interventional Radiology [address] [place] [address] Carmen Manrique MD [address] [place] [phone] Social History Tobacco Use Types Packs/Day Years [...] Info) Description 12/28/2024 9:15 AM EDT Appointment [facility] CT Scan [address] [place] [address] [phone] 12/28/2024 10:00 AM EDT Follow-Up [facility] Building Vascular Surgery [address] [place] [phone] Prior Authorization Technician: Rolo Moser MD [address] [place] [phone] documented as of this encounter Visit Diagnoses Not on filedocumented in this encounter Care Teams Photography Editor Relationship Specialty Start Date End Date Lauro Washington [address] [place] [address] PCP - General Internal Medicine 10/27/21 documented as of this encounter
--- OUTSIDE RECORDS SUMMARY | 2024-12-08 08:17 | XMS_ITS | Referral Summary ---
Author Organization [facility] Address [address] [place] [address] Care Team Providers Care Learning Disabilities Teacher Name Role Phone Lauro Washington Primary Care Provider [phone] Encounters Date Type Department Care Team Description 09/18/2024 Telephone [facility] Vascular Surgery [address] [place] [address] [phone] Real Estate Legal Assistant: Rolo Moser MD from Last 3 Months [...] Info) Description 12/28/2024 9:15 AM EDT Appointment [facility] CT Scan [address] [place] [address] 12/28/2024 10:00 AM EDT Follow-Up [facility] Building Vascular Surgery [address] [place] [address] Real Estate Legal Assistant: Rolo Moser MD [address] [place] [phone] Procedures * Due to [employer] law, this organization might not be sharing negative HIV tests. Procedure Name Priority Date/Time Associated Diagnosis Comments CT ANGIOGRAM ABDOMEN PELVIS W WO CONTRAST Routine 07/13/2024 9:14 AM EST Dissection of thoracoabdominal aorta from Last 3 Months or Most Recently Relevant to Health Maintenance Results * Due to [employer] law, this organization might not be sharing [...] obtain the completed interpretation. ? Workstation ID: [id number] Narrative 07/13/2024 9:50 AM EST EXAMINATION: CT [...] AND SOFT TISSUES: Unremarkable. Resulting Agency Comment [id number] Procedure Note Jerrell Arriaza MD - 07/13/2024 [...] possible to obtain thecompleted interpretation. Workstation ID: [id number] Rolo Velez MD IMG CT PROCEDURES Final Resul t from Last 3 Months or Most Recently Relevant to Health Maintenance Insurance MEDICARE Care Teams Learning Disabilities Teacher Relationship Specialty Start Date End Date Lauro Washington [address] [place] [address] PCP - General Internal Medicine 10/27/21
--- OUTSIDE RECORDS SUMMARY | 2024-12-08 08:17 | XMS_ITS | Encounter Summary ---
Author Organization [facility] Address [address] [place] [address] Care Team Providers Care Remote Operations Producer Name Role Phone Lauro Washington Primary Care Provider [phone] Encounter Details Date Type Department Care Team (Late st Contact Info) Description 03/29/2022 Orders Only [facility] XRay [address] [place] [address] Jaye Urena MD [address] [place], [place] [phone] Social History Tobacco Use Types Packs/Day Years [...] Info) Description 12/28/2024 9:15 AM EDT Appointment [facility] CT Scan [address] [place], [place] [id number] 12/28/2024 10:00 AM EDT Follow-Up [facility] Building Vascular Surgery [address] [place], [place] [phone] Balance Wheel Motion Inspector: Rolo Moser MD [address] [place] [address] documented as of this encounter Visit Diagnoses Not on filedocumented in this encounter Care Teams Remote Operations Producer Relationship Specialty Start Date End Date Lauro Washington [address] [place] [address] PCP - General Internal Medicine 10/27/21 documented as of this encounter
--- OUTSIDE RECORDS SUMMARY | 2024-12-08 08:17 | XMS_ITS | Encounter Summary ---
Author Organization [employer] Address [address] [facility] 7t [place] [address] Care Team Providers Care Toxicology Supervisor Name Role Phone Unavailable Primary Care Provider Unavailabl e Reason for Visit * Reason Onset Date Comments Results 07/16/2023 Encounter Details Date Type Department Care Team ([facility] Contact Info) Description 07/16/2023 Telephone [facility] CH[facility] MED & PEDS [address] [place] [address] Lauro Washington MD [address] [place] [address] Results Social History Tobacco Use Types Packs/Day [...] Miscellaneous Notes * Telephone Encounter - Crys Maruqez RN - 07/17/2023 8:46 AM EST Returned [...] Pt states was called this morning from [facility] regarding his CT angio results. They told [...] results as well. Please contact pt @ [phone] documented in this encounter Plan of Treatment Not on file documented as of this encounter Visit Diagnoses Not on filedocumented in this encounter
--- OUTSIDE RECORDS SUMMARY | 2024-12-08 08:17 | XMS_ITS | Encounter Summary ---
Author Organization [employer] Address 75 [facility] 7t [place] [address] Care Team Providers Care Buckler And Lacer Name Role Phone Unavailable Primary Care Provider Unavailabl e Reason for Visit * Reason Comments Med Refill Encounter Details Date Type Department Care Team (Late st Contact Info) Description 12/04/2022 Refill [facility] MEDICINE [address] [place] [address] Lauro Washington MD [address] [place] [address] Primary insomnia Social History Tobacco Use Types [...]
--- OUTSIDE RECORDS SUMMARY | 2024-12-08 08:18 | XMS_ITS | Encounter Summary ---
Author Organization [facility] Address [address] [place] [address] Care Team Providers Care Political Science Instructor Name Role Phone Lauro Washington Primary Care Provider [phone] Encounter Details Date Type Department Care Team (Late st Contact Info) Description 01/07/2023 Documentation [facility] Vascular Surgery [address] [place] [address] Adult Literacy Teacher: Nayana Caballero MD [address] [place] [address] Social History Tobacco Use Types Packs/Day Years [...] Info) Description 12/28/2024 9:15 AM EDT Appointment [facility] CT Scan [address] [place] [address] 12/28/2024 10:00 AM EDT Follow-Up [facility] Vascular Surgery [address] [place] [address] Adult Literacy Teacher: Rolo Moser MD [address] [place] [address] [phone] documented as of this encounter Procedures * Due to [place] state law, this organization might not be sharing negative HIV tests. Procedure Name Priority Date/Time Associated Diagnosis Comments ILLUMINATE AORTIC ANEURYSM SCREENING 01/07/2023 2:57 PM EDT documented in this encounter Results * Due to [place] [employer] law, this organization might not be sharing negative HIV tests. * Illuminate Aortic Aneurysm Screening (01/07/2023 2:57 PM EDT) Followed by Internal Vascular,Internal Vascular [facility]UMINATE ANALYTICS Aneurysm Size (cm) 6.0 cm I[facility]UM[facility] A[facility] Leak Status ILLUMINA TE ANALYTICS Aneurysm Repair Status ILLUMINATE ANALYTICS [facility] Review Date 02/10/2024 ILLUMINATE ANALYTICS Aneurysm Location Abdominal [facility] Comments: snooze for 6 mos f/u These results were created by staff from the [facility] program, a division of vascular surgery, based on the review of an existing imaging report. [employer] ILLUMI ESPERANZA ANALYTICS Image Date [id number] ILLU MINATE ANALYTICS Modality CT ILLUMINATE ANALYTICS Accession Number [id number] ILLUMINAZoobean ANALYTICS 01/07/2023 2:57 PM EDT us Aorta Screening Keon GIBSON H&V OUTSIDE STUDIE S Final Result [employer] documented in this encounter Visit Diagnoses Not on filedocumented in this encounter Care Teams Political Science Instructor Relationship Specialty Start Date End Date Lauro Washington [address] [place] [phone] PCP - General Internal Medicine 10/27/21 documented as of this encounter
--- OUTSIDE RECORDS SUMMARY | 2024-12-08 08:18 | XMS_ITS | Encounter Summary ---
Author Organization [employer] Address [address] [facility] [address] 7t [place] [address] Care Team Providers Care Braille Translator Name Role Phone Unavailable Primary Care Provider Unavailabl e Reason for Visit * Reason Comments Med Refill Encounter Details Date Type Department Care Team ([facility] st Contact Info) Description 04/01/2024 Refill [facility] CHC MED & PEDS [address] [place] [address] Lauro Washington MD [address] [place] [address] Essential (primary) hypertension Social History Tobacco Use [...]
--- OUTSIDE RECORDS SUMMARY | 2024-12-08 08:18 | XMS_ITS | Clinical Summary ---
Author Organization [facility], Address [address] [place] [address] [place] [address] Phone Care Team Providers Care Senior Ui Ux Developer Name Role Phone Lauro Washington MD Primary Care Provider [phone] Allergies No known active allergies Medications bumetanide [...] PM EDT) Hemoglobin A1C 5.2 (4.0-5.6) % [facility] Comment: MONITORING: In known diabetic patients, hemoglobin A1c targets should be discussed with health care provider. DIAGNOSTIC USE: ??The [place] Diabetes Association (ADA) and the World Health [...] Supplement 1 Testing performed or reported by [facility], a Service of [facility], [address] [place] [address] Trinidad Chowdhury MD, Extension Associate [facility]# [id number] 01/30/2022 5:47 PM EDT 01/30/2022 5:51 PM EDT us Chente Clements MD LAB BLOOD ORDERABLES Final Resul t [facility] from Last 3 Months or Most Recently Relevant to Health Maintenance Insurance [facility] Medicare Care Teams Senior Ui Ux Developer Relationship Specialty Start Date End Date Lauro Washington MD PCP - General Internal Medicine 10/09/19
--- OUTSIDE RECORDS SUMMARY | 2024-12-08 08:18 | XMS_ITS | Encounter Summary ---
Author Organization [facility] Address [address] [place] [address] Care Team Providers Care Shipping Weigher Name Role Phone Lauro Washington Primary Care Provider [phone] Encounter Details Date Type Department Care Team (Late st Contact Info) Description 01/07/2023 Documentation [facility] Vascular Surgery [address] [place] [phone] Tobacco Classer: Nayana Caballero MD [address] [place] [address] Social History Tobacco Use Types Packs/Day Years [...] Info) Description 12/28/2024 9:15 AM EDT Appointment [facility] CT Scan [address] [place] [address] 12/28/2024 10:00 AM EDT Follow-Up [facility] Vascular Surgery [address] [place] [address] Tobacco Classer: Rolo Moser MD [address] [place] [address] [phone] documented as of this encounter Procedures * Due to [place] state law, this organization might not be sharing negative HIV tests. Procedure Name Priority Date/Time Associated Diagnosis Comments ILLUMINATE AORTIC ANEURYSM SCREENING 01/07/2023 2:57 PM EDT documented in this encounter Results * Due to [place] [employer] law, this organization might not be sharing negative HIV tests. * Illuminate Aortic Aneurysm Screening (01/07/2023 2:57 PM EDT) Followed by Internal Vascular,Internal Vascular [facility] ANALYT[facility] Aneurysm Size (cm) 6.0 cm [facility] ANALYT[facility] Leak Status ILLUMINA TE ANALYTICS Aneurysm Repair Status ILLUMINATE ANALYTICS [facility] Review Date 09/17/2023 ILLUMINATE ANALYTICS Aneurysm Location Abdominal [facility]ATE ANALYT[facility] Comments: snooze for 6 mos f/u w/ CTA These results were created by staff from the [facility] program, a division of vascular surgery, based on the review of an existing imaging report. [employer] ILL[facility]I ESPERANZA ANALYTICS Image Date [id number] ILLU MINATE ANALYTICS Modality CT ILLUMINATE [employer] Accession Number [id number] ILLUMINATerraSpark Geosciences 01/07/2023 2:57 PM EDT us Aorta Screening Keon GIBSON H&V OUTSIDE STUDIE S Final Result [employer] documented in this encounter Visit Diagnoses Not on filedocumented in this encounter Care Teams Shipping Weigher Relationship Specialty Start Date End Date Lauro Washington [address] [place] [address] PCP - General Internal Medicine 10/27/21 documented as of this encounter
--- OUTSIDE RECORDS SUMMARY | 2024-12-08 08:18 | XMS_ITS | Encounter Summary ---
Author Organization [employer] Address 75 [facility] 7t [place] [address] Care Team Providers Care Clothes Wringer Name Role Phone Unavailable Primary Care Provider Unavailabl e Encounter Details Date Type Department Care Team ([facility] Contact Info) Description 01/28/2024 Orders Only [facility] [address] [place], [place] [phone] ProviderRaz MD Social History Tobacco Use Types [...]
--- OUTSIDE RECORDS SUMMARY | 2024-12-08 08:18 | XMS_ITS | Encounter Summary ---
Author Organization [employer] Address 75 [facility] 7t [place] [address] Care Team Providers Care Fulfillment Associate Name Role Phone Unavailable Primary Care Provider Unavailabl e Reason for Visit * Reason Comments Med Refill Encounter Details Date Type Department Care Team ([facility] st Contact Info) Description 07/09/2022 Refill [facility] CHC MED & PEDS [address] [place] [address] Lauro Washington MD [address] [place] [address] Essential (primary) hypertension (Primary Dx); Hypokalemia; Other [...]
--- OUTSIDE RECORDS SUMMARY | 2024-12-08 08:18 | XMS_ITS | Clinical Summary ---
Author Organization [employer] Address 75 [facility] 7t [place] [address] Care Team Providers Care Barge Hand Name Role Phone Unavailable Primary Care Provider [...] Score [facility] Department [address] [phone] Provider, Population Health Generic from [...] of LDL-C. ?? Skyler SS et al. LCAUDIA. 2013;310(19): 3809-6639 ?? (http://education.3Funnel/faq/AAF063) Non-HDL Cholesterol 76 <130 mg/dL (calc) [facility] Comment: For patients with diabetes plus 1 major ASCVD risk ?? factor, treating to a non-HDL-C goal of <100 mg/dL ?? (LDL-C of <70 mg/dL) is considered a therapeutic ?? option. Triglycerides 58 <150 mg/dL [facility] 02/15/2022 8:33 AM EDT us Lauro Washington MD LAB BLOOD ORDERABLES Final Result [facility] [address] from Last 3 Months or Most Recently Relevant to Health Maintenance [place] [id number]
--- OUTSIDE RECORDS SUMMARY | 2024-12-08 08:18 | XMS_ITS | Encounter Summary ---
Author Organization [facility] Address [address] [place] [address] Phone Care Team Providers Care Parking Garage Manager Name Role Phone Lauro Washington MD Primary Care Provider [phone] Encounter Details Date Type Department Care Team (Late st Contact Info) Description 01/24/2022 Documentation Only [facility], [address] [place] [address] Wendy Hurst PA Social History [...] on filedocumented in this encounter Care Teams Parking Garage Manager Relationship Specialty Start Date End Date Lauro Washington MD PCP - General Internal Medicine 10/09/19 documented as of this encounter
--- OUTSIDE RECORDS SUMMARY | 2024-12-08 08:18 | XMS_ITS | Encounter Summary ---
Author Organization [employer] Address [address] [facility] [address] 7t [place] [address] Care Team Providers Care Information Scientist Name Role Phone Unavailable Primary Care Provider Unavailabl e Encounter Details Date Type Department Care Team ([facility] st Contact Info) Description 07/10/2022 Orders Only [facility] [address] [place] [address] Rosi Cruz RN [address] [place] [address] Social History Tobacco Use Types Packs/Day Years [...]
--- NOTE | 2024-12-08 09:12 | A.OFFVIS_ITS ---
Vital Signs 12/08/24 09:13 Height 6 ft Weight 331 lb 9.204 oz BMI 45.0 BP 120/62 Blood Pressure Location Lt brachial Position Sitting Pulse 71 Pulse Source Pulse Oximeter Intake Visit Reasons: Follow up Echo Service Establishment Attendant Required: No Accompanied by: Self / Same As Patient Allergies No Known Allergies Allergy (Verified 01/22/23 09:56) Medication List - Last Reconciled 12/08/24 by Daniel Blake MD amlodipine 10 mg PO DAILY atorvastatin 80 mg PO DAILY azithromycin 250 mg PO DAILY carvedilol 12.5 mg PO BID cholestyramine-aspartame 4 gram (Prevalite) PO DAILY cholestyramine-aspartame 4 gram (Cholestyramine Light) 1 ea PO DAILY furosemide 80 mg PO DAILY losartan 50 mg PO DAILY oxycodone 10 mg PO DAILY PRN potassium chloride ER 10 mEq PO DAILY trazodone 150 - 300 mg PO BEDTIME PRN trazodone 300 mg PO DAILY warfarin 5 mg PO DAILY warfarin mg PO warfarin 2 mg PO DAILY zolpidem 10 mg PO BEDTIME PRN HPI Comments Details: Giovani returns for follow-up regarding aortic valve replacement and aortic dissection. To recall, he used to live in [place] and then relocated to [place] and then moved to [place] for family reasons. While he lived in [place], had acute chest pain in 2015. This led to a diagnosis of aortic dissection. Went to [facility] where he underwent repair of the same. Prior to this, he was morbidly obese and weighed in excess of 450 lb. He had also underwent gastric bypass surgery in 2014 and lost about 150 lb in weight. Extent of coronary disease not clear, but per reports, he also underwent saphenous vein graft to RCA. He also goes to [facility] for thoracic aneurysm and apparently, they are just monitoring him. Overall, he states he feels good. No new cardiac symptoms. Planning to move back to [place]. He states this is the last visit here. [facility] Medical History Chronic diastolic (congestive) heart failure DOUG (obstructive sleep apnea) PAF (paroxysmal atrial fibrillation) Surgical History Status post coronary artery bypass graft Status post mechanical aortic valve replacement History of gastric bypass (~11/2014) History of hernia repair (~11/2015) Status post aortic dissection repair (~05/2016) Family History Father Cancer Mother No problems noted. Social History Alcohol intake: current Comment: social Patient Tobacco Use Status: Former Tobacco user Review of Systems Const All systems reviewed & are unremarkable except as noted in HPI and below Reports as per HPI and Reports no additional complaints Eyes Reports as per HPI and Denies no additional complaints ENT Denies no additional complaints and Reports as per HPI Card Reports as per HPI, Reports no additional complaints, Denies acrocyanosis, Denies chest pain, Denies leg edema, Denies lightheadedness, Denies palpitations and Denies dyspnea Resp Reports as per HPI, Denies no additional complaints and Denies dyspnea GI Reports as per HPI and Denies no additional complaints Reports no additional complaints and Reports as per HPI Musc Reports no additional complaints and Reports as per HPI Skin/Breast Reports system reviewed and no additional complaints, except as documented Neuro Reports no additional complaints and Reports as per HPI Psych Reports no additional complaints and Reports as per HPI Endo Reports no additional complaints, Reports as per HPI and Denies palpitations Silvestre/Lymph Reports no additional complaints and Reports as per HPI Aller/Immun Reports no additional complaints and Reports as per HPI Physical Exam Vital Signs: Last Vital Signs Pulse 71 12/08/24 09:13 BP 120/62 12/08/24 09:13 BMI result Body Mass Index 45.0 Const General: cooperative, comfortable and no acute distress Orientation/consciousness: patient oriented x3 HEENT Other: Unremarkable Neck Neck: Yes normal visual inspection Chest Chest palpation & inspection: normal inspection of the chest Resp Auscultation: clear to auscultation bilaterally, no crackles and no wheezes Cardio Jugular venous distension: no JVD Palpation: normal PMI Heart sounds: S1 normal heart sound present, no gallops, Murmur heart sound present (1/6 REGGIE +), no rubs and Other heart sounds present (Normal prosthetic heart sounds.) GI Palpation (GI): Soft to palpation Back/Spine/Pelvis Other: unremarkable Skin General skin exam: no rashes or lesions noted Neuro General: patient oriented x3 Extrem General: Yes pedal edema (1+) Psych Mental Status: mental status grossly normal Assessment & Plan Assessment & Plan (1) Chronic diastolic (congestive) heart failure: Code(s): I50.32 - Chronic diastolic (congestive) heart failure Category: Medical Plan: No recent issues. On diuretics. He usually gets his lab work done through his own PCP and we can request them for the most recent ones. (2) Status post mechanical aortic valve replacement: Code(s): Z95.2 - Presence of prosthetic heart valve Category: Surgical Plan: Stable on echocardiogram. Continue anticoagulation. Off aspirin because of excessive bruising. Infective endocarditis prophylaxis per protocol. In the recent echocardiogram from last week, normal prosthetic valve function. LVEF was 55-60%. (3) PAF (paroxysmal atrial fibrillation): Code(s): I48.0 - Paroxysmal atrial fibrillation Category: Medical Plan: Per history, cardioversions in the past. He has not had any episodes in recent years. Remains on beta-blockers and already on anticoagulation for the valve. (4) Status post coronary artery bypass graft: Code(s): Z95.1 - Presence of aortocoronary bypass graft Category: Surgical Plan: History of SVG to RCA. No angina. Seems stable in this regard. Remains on statins. (5) Status post aortic dissection repair: Onset Date: ~05/2016 Code(s): Z98.890 - Other specified postprocedural states Category: Surgical Plan: Followed up by vascular surgery at [facility]. Per patient, being monitored but no interventions. (6) DOUG (obstructive sleep apnea): Code(s): G47.33 - Obstructive sleep apnea (adult) (pediatric) Category: Medical Plan: CPAP. Plan Discussion Notes I discussed the ongoing need for monitoring the patient's cardiac issues and reiterated the importance of continuous care under a package yarns drying machine operator, particularly as he relocates. We reviewed his current management plan, emphasizing stability in current symptoms and noting that his medication regimen with an 80 mg diuretic should be continued unless symptoms change. We discussed seamless transition for the patient to a new package yarns drying machine operator in [place]. I underscored the importance of medication adherence. We also covered the efficacy of osteoarthritis treatments like knee injections and the importance of continued pain and function assessment. The patient is informed of how his to-be-new providers can access existing records for consistency and thorough continued management. Patient was informed and verbally consented to the use of an ambient scribe for clinic note documentation during this visit. Patient Instructions: - Continue taking your diuretic every day. - Ensure you have enough refills for your medications before moving. - Follow up with your new package yarns drying machine operator in [place] to continue managing your shortness of breath. - Carry your medical records with you to [place] for your new doctor. - If you experience increased shortness of breath or chest pain or any other cardiac symptoms, seek immediate care - Remain in touch with your current medical team until you fully transition to your new care team. - Remember, your health information is important, so keep a copy of your records. Coding Level of Care Code Est Pt Level 4 (15168) Complex EM visit Add On G2211 Diagnoses Chronic diastolic (congestive) heart failure I50.32 Status post mechanical aortic valve replacement Z95.2 PAF (paroxysmal atrial fibrillation) I48.0 Status post coronary artery bypass graft Z95.1 Status post aortic dissection repair Z98.890 DOUG (obstructive sleep apnea) G47.33
[2024-12-08 09:13] VITALS: BP 120/62; PULSE 71; BMI 45.0
== END 2024-12-08 09:35 | disposition home or self-care (01) ==
LOC: HO.HCS 08:13
PROVIDERS: PCP Internal Medicine; Visit Provider Internal Medicine
DX: I50.32 Chronic diastolic (congestive) heart failure (principal); Z95.2 Presence of prosthetic heart valve; I48.0 Paroxysmal atrial fibrillation; Z95.1 Presence of aortocoronary bypass graft; Z98.890 Other specified postprocedural states; G47.33 Obstructive sleep apnea (adult) (pediatric)
CPT/HCPCS: 99214; G2211

== ENCOUNTER → 2024-12-08 08:12 | Outpatient (BNVA) | payer MEDICARE, SELFPAY | PROVIDERS: PCP Internal Medicine; Visit Provider Internal Medicine | DX: I50.32 Chronic diastolic (congestive) heart failure (principal); I48.0 Paroxysmal atrial fibrillation; G47.33 Obstructive sleep apnea (adult) (pediatric); Z95.2 Presence of prosthetic heart valve; Z95.1 Presence of aortocoronary bypass graft; Z98.890 Other specified postprocedural states | CPT/HCPCS: 99212 ==